=== PATIENT | female | born 2000 | race Caucasian/White ===

== ENCOUNTER 2022-07-20 14:30 | Outpatient (RCR) | payer OTHER, SELFPAY ==
--- NOTE | 2022-07-04 13:00 | HP.PTEVAL ---
Patient's Visit Information PUNEET WARNER is a 22 year old F referred to Physical Therapy by LUCY Hernandez with a diagnosis of Chronic B hip and knee pain. Date of Evaluation: 07/04/22 Physical Therapist: Wilfrido Figueroa DPT - Visit Plan Frequency: 2x /Week Duration: 6 Weeks Plan: Start with B LE/core strengthening in aquatic setting. Work on graded/progressive exercises. Progress home walking program and home exercise program as tolerated. - Subjective Pt. is here today for her initial evaluation with diagnosis of chronic B hip pain, B knee pain. Pt. 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 Pt. reports having increased anxiety, fibromyalgia, and growth hormone deficiency. Pt. reports having increased B hip and knee pain, but intermittently. today is a good day. She reports having increased pain with increased activities. Pt. denies N/T. She reports having ruled out alternate auto immune disorders. Pt. has tried land based PT with mild success. She has recently done DN and had experienced some reduction in symptoms. She has a fairly sedentary life style secondary to pain and work schedule, working on computer doing customer service. Pt. is hopeful to reduce symptoms in order to get back to all recreational and work activities with less hip and knee pain. - Pain R knee Pain Intensity (Out of 10): 0 Pain Intensity Range: 0, 8 L knee Pain Intensity (Out of 10): 0 Pain Intensity Range: 0, 8 R hip Pain Intensity (Out of 10): 0 Pain Intensity Range: 0, 7 L hip Pain Intensity (Out of 10): 0 Pain Intensity Range: 0, 7 Lumbar spine Pain Intensity (Out of 10): 0 Pain Intensity Range: 0, 6 - Objective POSTURE: Pt. had fairly normal posture in stance. Normal hip and knee positioning in stance. No valgus/varus positioning in noted. PALPATION: Pt. had no pain with palpation of BLEs. Pt. did not have any medial or lateral joint pain today. No marked edema or swelling noted. Pt. reports that she does experience increased swelling in her L knee after standing and working for longer hours. NEURO: normal sensation and normal DTR of BLEs. Pt. is able to rise on heels and toes without limitatinos. ROM: PT. has full ROM of B knees and hips. Pt. does have slight tenderness with L knee during passive over pressure. Pt. has slight tightness in B HS. MMT: B ankles 5/5 throughout. R Knee: ext 35#, flexion 31.2#. L knee: ext 33.9#, flexion 32.4#. R hip: flexion 21.3#, abd 28#. L hip: flexion 22.8#, abd 24.7#. GAIT: pt. has fairly normal gait pattern. Slight lateral hip sway. Pt. has normal step length. She reports no pain with testing today. STAIRS: pt. is able to negotiate with reciprocal pattern without use of HR. She does reports increased L knee (anterior) with loading ascending and descending. Reduced with cessation of stairs. - Special Tests R Hip Scour: Negative R Hip Quadrant - Intraarticular Pathology: Negative R Hip CIELO - Intraarticular Pathology: Negative R Hip FADDIR - Labrum: Negative R Hip Ilda - IT Band: Negative L Hip Scour: Negative L Hip Quadrant - Intraarticular Pathology: Negative L Hip CIELO - Intraarticular Pathology: Negative L Hip FADDIR - Labrum: Negative L Hip Trendelenberg - Glut Medius: Negative R Knee Katie - Meniscus: Negative R Knee Disco Test - Meniscus: Negative R Knee Freeman - ACL: Negative R Knee Posterior Drawer - PCL: Negative R Knee Posterior Sag - PCL: Negative R Knee Valgus - MCL: Negative R Knee Varus - LCL: Negative R Knee Patellar Apprehension - PFS: Negative L Knee Katie - Meniscus: Negative L Knee Disco Test - Meniscus: Negative L Knee Freeman - ACL: Negative L Knee Posterior Drawer - PCL: Negative L Knee Posterior Sag - PCL: Negative L Knee Valgus - MCL: Negative L Knee Varus - LCL: Negative - Balance/Special Test Scores Lower Extremity Functional Score: 40 - Goals Goal 1:: LTG: Pt. to be I with progressive graded exercises. Goal Time Frame: 4-6 Weeks Goal 2:: STG: Pt. to initiate and maintain walking program to increase tolerance to overall mobility and functional activities. Goal Time Frame: 2-4 Weeks Goal 3:: LTG: Pt. to be able to ambulate 1500'+ in 6MWT without increase in symptoms. Goal Time Frame: 4-6 Weeks Goal 4:: LTG: Pt. to have increased BLE strength and core strength increased by 10# throughout. Goal Time Frame: 4-6 Weeks Goal 5:: LTG: Pt. to be able to negotiate 1 flight of stairs without increase in knee pain. Goal Time Frame: 4-6 Weeks - Rehabilitation Potential Physical Therapy Diagnosis: Pt. has signs and symptoms consistent with Chronic B hip and knee pain. Pt. has some mild weakness in her BLE and core. She has decent ROM. It seems to be more of a fibromyalgia like pathology rather than a marked mechanical one. I would recommend that she start with graded exercises slowly increasing load in order to progress tolerance to all ADLs and recreational activities. Rehabilitation Potential: Good - Anticipated Interventions Patient/Client Instruction: Educate patient on: Condition, Plan of Care, Risk Factors, Benefits of Fitness Program For the Purpose of:: To facilitate caregiver knowledge, To improve self management, To prevent re-injury, To improve ability to perform tasks related to life management, To improve tolerance to ADL's Therapeutic Exercise to Include: Strength training, Power training, Balance training, Body mechanics, Postural training, Flexibilty training, Gait and locomotor training, In an aquatic setting, Dynamic Lumbar Stabilization For the Purpose of:: To decrease pain, To increase ROM, To improve nutrient delivery to tissue, To increase oxygenation perfusion, To improve muscle performance and motor function, To improve ability to perform ADL's, To improve gait and locomotor functions, To improve health of tissue, To decrease soft tissue restriction, To increase flexibility/ROM Thank you for the opportunity to evaluate your patient. For Medicare and Medicare HMO plans, please review the plan of care and approve it. It will need to be FAXED BACK to us at [phone] for Medicare purposes. For Medicare only, by signing this I certify the plan of care. Please let me know if there are questions or concerns regarding this plan of care. Physician Signature: Date:
== END 2022-07-20 19:00 | disposition home or self-care (01) ==
LOC: PT 14:30
PROVIDERS: PCP Pediatrics; Referring Provider Nurse Practitioner; Visit Provider Nurse Practitioner
DX: M25.561 Pain in right knee (principal); M25.562 Pain in left knee; M25.551 Pain in right hip; M25.552 Pain in left hip
CPT/HCPCS: 97113; 97161

== ENCOUNTER → 2023-06-24 | Outpatient (CLI) | payer OTHER, SELFPAY ==
--- NOTE | 2023-06-24 08:09 | RAD_ITS ---
INDICATION: difficulty breathing -- sustained blunt trauma to her nose in 5th grade EXAMINATION/TECHNIQUE: X-RAY - XR Nasal Bones Min 3 Views COMPARISON: No relevant prior comparison study available FINDINGS: SOFT TISSUES: No soft tissue swelling or gas. No radiopaque foreign body. BONES/TMJs: No fracture or subluxation. No sclerotic or destructive changes observed. RAD/Nasal Bones min 3 Views IMPRESSION: Unremarkable nasal bones as seen on this exam. Electronically Signed: Jose Enrique Michelle MD at 8:38 EST ,
== END | disposition home or self-care (01) ==
PROVIDERS: Referring Provider Surgery; Visit Provider Surgery
DX: R06.89 Other abnormalities of breathing (principal); J98.8 Other specified respiratory disorders; J34.2 Deviated nasal septum; J34.89 Other specified disorders of nose and nasal sinuses; S00.33XS Contusion of nose, sequela; Z87.898 Personal history of other specified conditions
CPT/HCPCS: 70160

== ENCOUNTER → 2023-06-27 | Outpatient (CLI) | payer OTHER, SELFPAY ==
--- NOTE | 2023-06-27 17:45 | CT_ITS ---
STUDY: CT FACIAL BONES WITHOUT CONTRAST REASON FOR EXAM: Female, 23 years old. Difficulty breathing -- sustained blunt trauma to her nose in 5th grade RADIATION DOSAGE (If Supplied By Facility): CTDIvol = ( 33.06 ) mGy, DLP = ( 842.11 ) mGycm TECHNIQUE: The patient was scanned in a multi detector CT scanner. Sagittal and coronal images were reconstructed. Individualized dose optimization techniques were used for this CT. COMPARISON: X-ray June 24, 2023 FINDINGS: Normal soft tissue structures. Normal orbital hamilton and orbital contents. Normal nasal bones and anterior nasal spine. Nasal septum deviates to the left. Normal facial bones. There is no demonstrated fracture. Normal visualized paranasal sinuses. CT/Sinus/Facial Bone IMPRESSION: Nasal septal deviation. Electronically Signed: Michael Beal MD at 18:21 EST ,
--- OUTSIDE RECORDS SUMMARY | 2023-06-27 17:54 | XMS RPT_ITS | CCD ---
Author Name Unknown Address [address] [facility] [address] [place] [address] Organization [facility] Care Team Providers Care Air Marshal Name Role Phone TERRAZAS ANTOINE L Unavailable Unavailable TOD, MARGI M Unavailable Unavailable TOD, MARGI M Unavailable Unavailable TERRAZAS, ANTOINE L Unavailable Unavailable TERRAZAS, ANTOINE L Unavailable Unavailable TOD, MARGI M Unavailable Unavailable TOD, MARGI M Unavailable Unavailable TERRAZAS, ANTOINE L Unavailable Unavailable TERRAZAS, ANTOINE L Unavailable Unavailable YUDI VAZQUEZ Unavailable Unavailable TOD, MARGI M Unavailable Unavailable TOD, MARGI M Unavailable Unavailable Ailin GAN, Sigifredo Foster Primary Care Provider [phone] Ailin GAN, Sigifredo Foster Primary Care Provider [phone] Ailin GAN, Sigifredo oFster Primary Care Provider [phone] DAISY BENJAMIN Referring Unavailable PARISI, SIGIFREDO Foster Primary Care Unavailable PARISI, SIGIFREDO Foster Primary Care Unavailable SIGIFREDO PARISI Attending Unavailable AILIN, SIGIFREDO Foster Primary Care Unavailable PARISISIGIFREDO FINLEY Attending Unavailable PARISI, RASHAD Primary Care Unavailable PATO ESTEVEZ Attending Unavailable OLDER, ERICA Referring Unavailable PARISI, RASHAD Primary Care Unavailable PATO ESTEVEZ Attending Unavailable OLDER, ERICA Referring Unavailable PARISI, RASHAD Primary Care Unavailable PATO ESTEVEZ Attending Unavailable OLDER, ERICA Referring Unavailable PARISI, RASHAD Primary Care Unavailable PATO ESTEVEZ Attending Unavailable OLDER, ERICA Referring Unavailable PARISI, RASHAD Primary Care Unavailable PATO ESTEVEZ Attending Unavailable OLDER, ERICA Referring Unavailable PARISI, RASHAD Primary Care Unavailable PATO ESTEVEZ Attending Unavailable OLDER, ERICA Referring Unavailable PARISI, RASHAD Primary Care Unavailable PATO ESTEVEZ Attending Unavailable OLDER, ERICA Referring Unavailable SIGIFREDO PARISI Primary Care Unavailable SIGIFREDO PARISI Referring Unavailable SIGIFREDO PARISI Primary Care Unavailable Allergies Allergy Classification Reported Allergen(s) Allergy Type Date of Onset Reaction(s) Facility (20 sources) codeine; Translations: [CODEINE] Drug Allergy 07-06-2005 [facility] Repository Medications Current Medications Medication Drug Class(es) Dates Sig (Normalized) Sig (Original) etonogestrel 68 mg drug implant (20 sources) Progestin Start: 05-16-2020 End: 05-16-2023 etonogestrel (NEXPLANON) subdermal implant 68 mg Indications: Insertion of implantable subdermal contraceptive 1 Each by SUBDERMAL route as directed. 1 Each 0 05/16/2020 05/16/2023 Active Completed/Discontinued Medications Medication Drug Class(es) Dates Sig (Normalized) Sig (Original) benzonatate 100 mg oral capsule (1 source) Non-narcotic Antitussive Start: 04-26-2023 take 2 capsules by mouth three times daily as needed benzonatate (TESSALON PERLE) 100 mg capsule Indications: URI, acute Take 2 capsules by mouth three times a day as needed. 30 capsule 0 04/26/2023 Active Problems Active Problems Problem Classification Problem Date Documented Da te Episodic/Chronic Anxiety disorders (20 sources) Generalized anxiety disorder; Translations: [Generalized anxiety disorder] Onset: 09-06-2021 09-06-2021 Chronic Mood disorders (20 sources) Recurrent major depressive episodes, moderate ; Translations: [Major depressive disorder, recurrent, moderate] Onset: 09-06-2021 09-06-2021 Chronic Nutritional deficiencies (17 sources) Vitamin D deficiency; Translations: [Vitamin D deficiency, unspecified] Onset: 09-11-2021 Chronic Unclassified (1 source) APPOINTMENT CANCELLED Past or Other Problems Problem Classification Problem Date Documented Date Episodic/Chronic Immunizations and screening for infectious disease (2 sources) Encounter for screening for human immunodeficiency virus [HIV]; Translations: [Encounter for screening for other viral diseases] Onset: 01-15-2023 Episodic Other connective tissue disease (16 sources) Fibromyalgia; Translations: [Fibromyalgia] Onset: 04-30-2022 Episodic Other connective tissue disease (1 source) Fibromyalgia; Translations: [Fibromyalgia] Onset: 04-30-2022 Episodic Other non-traumatic joint disorders (20 sources) Multiple joint pain; Translations: [Pain in unspecified joint] Onset: 09-06-2021 09-06-2021 Episodic Results Test Name Value Interpretation Reference Range Facil ity Vital Signs Date Time Vital Sign Value Performing Clinician Xenia clark 09-06-2021 16:19-0400 Body height 153 cm Erica Older DISTRICT SALES REPRESENTATIVE.BIODIESEL PROCESS CONTROL TECHNICIAN Work Phone: [facility] 09-06-2021 16:19-0400 Body weight 60.78 kg Erica Older DISTRICT SALES REPRESENTATIVE.BIODIESEL PROCESS CONTROL TECHNICIAN Work Phone: [facility] 09-06-2021 16:19-0400 Diastolic blood pressure 82 mm[Hg] Erica Older DISTRICT SALES REPRESENTATIVE.BIODIESEL PROCESS CONTROL TECHNICIAN Work Phone: [facility] 09-06-2021 16:19-0400 Heart rate 78 /min Erica Older DISTRICT SALES REPRESENTATIVE.BIODIESEL PROCESS CONTROL TECHNICIAN Work Phone: [facility] 09-06-2021 16:19-0400 Respiratory rate 16 /min Erica Older DISTRICT SALES REPRESENTATIVE.BIODIESEL PROCESS CONTROL TECHNICIAN Work Phone: [facility] 09-06-2021 16:19-0400 SaO2% (BldA) [Mass fraction] 97 % Erica Older DISTRICT SALES REPRESENTATIVE.BIODIESEL PROCESS CONTROL TECHNICIAN Work Phone: [facility] 09-06-2021 16:19-0400 Systolic blood pressure 120 mm[Hg] Erica Older DISTRICT SALES REPRESENTATIVE.BIODIESEL PROCESS CONTROL TECHNICIAN Work Phone: [facility] Encounters Encounter Date Encounter Type Care Provider Facility Start: 04-30-2023 ambulatory Erica Older DISTRICT SALES REPRESENTATIVE .BIODIESEL PROCESS CONTROL TECHNICIAN Work Phone: [facility] Plan of Treatment Date Care Activity Detail Author Start: 05-02-2023 PAP TESTING PAP TESTING [facility] Start: 02-15-2023 Covid-19 Vaccine ( season) Covid-19 Vaccine ( season) [facility] Start: 02-15-2023 Influenza vaccination [facility] Start: 02-15-2022 Influenza vaccination INFLUENZA (#1) [facility] Start: 01-31-2022 Urine microalbumin profile [facility] Start: 12-12-2021 End: 02-11-2022 VITAMIN D 25 HYDROXY VITAMIN D 25 HYDROXY Lab Routine Vitamin D deficiency Expected: 12/12/2021 (Approximate), Expires: 02/11/2022 [facility] Work Phone: Immunizations Immunization Date Immunization Notes Care Provider Misael davidson 04-14-2021 COVID-19 vaccine, ag e 12+ yr (PFIZER-BIONTECH - PURPLE TOP) Erica Older DISTRICT SALES REPRESENTATIVE.BIODIESEL PROCESS CONTROL TECHNICIAN Work Phone: [facility] 04-14-2021 influenza, injectabl e, quadrivalent, contains preservative Erica Older DISTRICT SALES REPRESENTATIVE.BIODIESEL PROCESS CONTROL TECHNICIAN Work Phone: [facility] 04-14-2021 influenza virus vacc ine, unspecified formulation Erica Older DISTRICT SALES REPRESENTATIVE.BIODIESEL PROCESS CONTROL TECHNICIAN Work Phone: [facility] 06-13-2020 COVID-19 vaccine, ag e 12+ yr (PFIZER-BIONTECH - PURPLE TOP) Erica Older DISTRICT SALES REPRESENTATIVE.BIODIESEL PROCESS CONTROL TECHNICIAN Work Phone: [facility] 01-09-2018 Human Papillomavirus 9-valent vaccine Erica Older DISTRICT SALES REPRESENTATIVE.BIODIESEL PROCESS CONTROL TECHNICIAN Work Phone: [facility] Work Phone: 10-11-2017 Human Papillomavirus 9-valent vaccine Erica Older DISTRICT SALES REPRESENTATIVE.BIODIESEL PROCESS CONTROL TECHNICIAN Work Phone: [facility] Work Phone: 05-17-2017 Human Papillomavirus 9-valent vaccine Erica Older DISTRICT SALES REPRESENTATIVE.BIODIESEL PROCESS CONTROL TECHNICIAN Work Phone: [facility] Work Phone: 01-24-2017 meningococcal polysaccharide (groups A, C, Y and W-135) diphtheria toxoid conjugate vaccine (MCV4P) Erica Older DISTRICT SALES REPRESENTATIVE.BIODIESEL PROCESS CONTROL TECHNICIAN Work Phone: [facility] 05-18-2016 influenza, seasonal, injectable Erica Older DISTRICT SALES REPRESENTATIVE.BIODIESEL PROCESS CONTROL TECHNICIAN Work Phone: [facility] 04-21-2013 influenza virus vacc ine, live, attenuated, for intranasal use Erica Older DISTRICT SALES REPRESENTATIVE.BIODIESEL PROCESS CONTROL TECHNICIAN Work Phone: [facility] 11-05-2013 varicella virus vaccine Erica Older DISTRICT SALES REPRESENTATIVE.[facility] Work Phone: [facility] 05-01-2012 influenza virus vacc ine, unspecified formulation Erica Older DISTRICT SALES REPRESENTATIVE.[facility] Work Phone: [facility] 02-01-2012 Meningococcal, MCV4, unspecified conjugate formulation(groups A, C, Y and W-135) Erica Older DISTRICT SALES REPRESENTATIVE.[facility] Work Phone: [facility] Work Phone: 02-01-2012 tetanus toxoid, redu gabriela diphtheria toxoid, and acellular pertussis vaccine, adsorbed Erica Older DISTRICT SALES REPRESENTATIVE.[facility] Work Phone: [facility] Work Phone: 04-28-2011 influenza virus vacc ine, live, attenuated, for intranasal use Erica Older DISTRICT SALES REPRESENTATIVE.[facility] Work Phone: [facility] 2010 influenza virus vacc ine, live, attenuated, for intranasal use Erica Older DISTRICT SALES REPRESENTATIVE.BIODIESEL PROCESS CONTROL TECHNICIAN Work Phone: [facility] 04-20-2009 novel Influenza-H1N1 -09, live virus for nasal administration Sigifredo Parisi MD Work Phone: [facility] 05-06-2008 influenza virus vacc ine, unspecified formulation Erica Older DISTRICT SALES REPRESENTATIVE.BIODIESEL PROCESS CONTROL TECHNICIAN Work Phone: [facility] Work Phone: 05-07-2006 influenza virus vacc ine, unspecified formulation Erica Older DISTRICT SALES REPRESENTATIVE.[facility] Work Phone: [facility] Work Phone: 03-14-2004 diphtheria, tetanus toxoids and acellular pertussis vaccine Erica Older DISTRICT SALES REPRESENTATIVE.BIODIESEL PROCESS CONTROL TECHNICIAN Work Phone: [facility] Work Phone: 03-14-2004 measles, mumps and rubella virus vaccine Erica Older DISTRICT SALES REPRESENTATIVE.BIODIESEL PROCESS CONTROL TECHNICIAN Work Phone: [facility] Work Phone: 03-14-2004 poliovirus vaccine, inactivated Erica Older DISTRICT SALES REPRESENTATIVE.[facility] Work Phone: [facility] Work Phone: 05-10-2003 influenza virus vacc ine, unspecified formulation Erica Older DISTRICT SALES REPRESENTATIVE.[facility] Work Phone: [facility] Work Phone: 09-10-2000 diphtheria, tetanus toxoids and acellular pertussis vaccine Erica Older DISTRICT SALES REPRESENTATIVE.BIODIESEL PROCESS CONTROL TECHNICIAN Work Phone: [facility] Work Phone: 09-10-2000 haemophilus influenz ae type b vaccine, HbOC conjugate Erica Older DISTRICT SALES REPRESENTATIVE.BIODIESEL PROCESS CONTROL TECHNICIAN Work Phone: [facility] Work Phone: 09-10-2000 hepatitis B vaccine, pediatric or pediatric/adolescent dosage Erica Older DISTRICT SALES REPRESENTATIVE.[facility] Work Phone: [facility] Work Phone: 09-10-2000 pneumococcal conjuga te vaccine, 7 valent Erica Older DISTRICT SALES REPRESENTATIVE.[facility] Work Phone: [facility] Work Phone: 05-23-2000 measles, mumps and rubella virus vaccine Erica Older DISTRICT SALES REPRESENTATIVE.[facility] Work Phone: [facility] Work Phone: 05-23-2000 pneumococcal conjuga te vaccine, 7 valent Erica Older DISTRICT SALES REPRESENTATIVE.BIODIESEL PROCESS CONTROL TECHNICIAN Work Phone: [facility] Work Phone: 05-23-2000 poliovirus vaccine, inactivated Erica Older DISTRICT SALES REPRESENTATIVE.BIODIESEL PROCESS CONTROL TECHNICIAN Work Phone: [facility] Work Phone: 05-17-2000 varicella virus vaccine Erica Older DISTRICT SALES REPRESENTATIVE.BIODIESEL PROCESS CONTROL TECHNICIAN Work Phone: [facility] Work Phone: 02-22-2000 pneumococcal conjuga te vaccine, 7 valent Erica Older DISTRICT SALES REPRESENTATIVE.BIODIESEL PROCESS CONTROL TECHNICIAN Work Phone: [facility] Work Phone: 1999 diphtheria, tetanus toxoids and acellular pertussis vaccine Erica Older DISTRICT SALES REPRESENTATIVE.BIODIESEL PROCESS CONTROL TECHNICIAN Work Phone: [facility] Work Phone: 1999 diphtheria, tetanus toxoids and acellular pertussis vaccine Erica Older DISTRICT SALES REPRESENTATIVE.[facility] Work Phone: [facility] Work Phone: 1999 haemophilus influenz ae type b vaccine, HbOC conjugate Erica Older DISTRICT SALES REPRESENTATIVE.[facility] Work Phone: [facility] Work Phone: 1999 hepatitis B vaccine, pediatric or pediatric/adolescent dosage Erica Older DISTRICT SALES REPRESENTATIVE.[facility] Work Phone: [facility] Work Phone: 1999 poliovirus vaccine, inactivated Erica Older DISTRICT SALES REPRESENTATIVE.[facility] Work Phone: [facility] Work Phone: 1999 diphtheria, tetanus toxoids and acellular pertussis vaccine Erica Older DISTRICT SALES REPRESENTATIVE.[facility] Work Phone: [facility] Work Phone: 1999 haemophilus influenz ae type b vaccine, HbOC conjugate Erica Older DISTRICT SALES REPRESENTATIVE.[facility] Work Phone: [facility] Work Phone: 1999 hepatitis B vaccine, pediatric or pediatric/adolescent dosage Erica Older DISTRICT SALES REPRESENTATIVE.[facility] Work Phone: [facility] Work Phone: 1999 poliovirus vaccine, inactivated Erica Older DISTRICT SALES REPRESENTATIVE.[facility] Work Phone: [facility] Work Phone: Payers Date Payer Category Payer Private Health Insurance [employer] A ETNA CHOICE POS II [id number] 2019-Present [phone] [address] [place] [address] POS [id number] 2019 Private Health Insurance [id number] 2019 Private Health Insurance [id number] Unknown [id number] Social History Date Type Detail Facility Start: 09-06-2021 End: 04-24-2022 Tobacco smoking status NHIS Ex-smoker [facility] End: 06-17-2020 History of tobacco use Current smoker [facility] End: 06-17-2020 History of tobacco use Cigarette Smoker [facility] Start: 09-06-2021 End: 10-26-2022 Cigarettes smoked current (pack per day) - Reported 0.5 [facility] Start: 09-06-2021 End: 04-24-2022 Tobacco use and exposure Smokeless tobacco non-user [facility] Start: 09-06-2021 End: 04-26-2023 Alcohol intake Current drinker of alcohol (finding) [facility] Start: 09-06-2021 History SDOH Alcohol Comment occasional [facility] Start: 1999 Sex Assigned At Not on file [facility] Start: 08-22-2021 End: 09-01-2021 Exposure to SARS-CoV-2 (event) Not sure [facility] Work Phone: Start: 08-22-2022 History SDOH Alcohol Frequency 2 [facility] Start: 08-22-2022 History SDOH Alcohol Std Drinks 1 [facility] Start: 08-22-2022 History SDOH Social Connections Phone 5 [facility] Start: 08-22-2022 History SDOH Social Connections Get Together 3 [facility] Start: 08-22-2022 History SDOH Social Connections Quaker 98 [facility] Start: 08-22-2022 History SDOH Social Connections Living 8 [facility] Start: 08-22-2022 History SDOH Stress 4 [facility] Start: 08-22-2022 End: 10-26-2022 Social connection and isolation panel [facility] How often do you att end mandaeism or yazdanism services? Patient refused [facility] Do you belong to any clubs or organizations such as mandaeism groups, unions, fraternal or athletic groups, or school groups? No [facility] Are you now , , , , never or living with a partner? Living with partner [facility] How often to you hav e a drink containing alcohol? Monthly or less [facility] How many standard dr inks containing alcohol do you have on a typical day? 1 or 2 [facility] How often do you hav e 6 or more drinks on 1 occasion? Never [facility] Do you feel stress - tense, restless, nervous, or anxious, or unable to sleep at night because your mind is troubled all the time - these days [OSQ] Rather much [facility] (I/We) worried wheth er (my/our) food would run out before (I/we) got money to buy more. Never true [facility] Clinical Notes 12-04-2016 to 04-26-2023 Sigifredo Parisi MD - 08/24/2022 10:51 AM Jamia Estevez, PT - 06/29/2022 9:42 AM ESTTelephone Encounter - Radha Thrasher RN - 06/28/2022 12:14 PM Jamia Estevez, PT - 06/05/2022 1:56 PM EST Note Date & Type Note Facility 04-26-2023 Note HNO ID: [id number] Author: Daisy Benjamin APRN.BIODIESEL PROCESS CONTROL TECHNICIAN Service: ? Author Type: Nurse Practitioner Type: Progress Notes Filed: 04/26/2023 12:22 PM Note Text: Subjective HPI HPI Valente Adame is a 22 year old female who presents today for CC of cough, congestion, ear pain, sinus pressuer. This started 4 days ago. Has tried otc medication for relief. Symptoms are worsened by nothing. Risk factors sick exposures recently. Denies possibility of being . Nonsmoker. 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 One capsule per week. DULoxetine (CYMBALTA) 60 mg capsule Take 1 capsule by mouth once daily. meloxicam (MOBIC) 15 mg tablet Take 1 tablet by mouth once daily as needed. With food. traZODone (DESYREL) 100 mg tablet Take 100 mg by mouth at bedtime as needed. busPIRone (BUSPAR) 15 mg tablet Take 30 mg by mouth twice daily. etonogestrel (NEXPLANON) subdermal implant 68 mg 1 Each by SUBDERMAL route as directed. predniSONE (DELTASONE) 20 mg tablet Take 2 tablets by mouth once daily for 5 days. benzonatate (TESSALON PERLE) 100 mg capsule Take 2 capsules by mouth three times a day as needed. FAMILY HISTORY Problem Relation Age of Onset Kidney Disease Mother nephritis Headache Mother migraine Hypertension Maternal Grandmother Breast Cancer Maternal Grandmother carries breast gene Diabetes Maternal Grandfather type 2 Lipids Maternal Grandfather Hypertension Maternal Grandfather Blood Disease Maternal Grandfather refractory anemia Diabetes Paternal Grandfather type 2 Rheumatologic disease Other RA Social History Tobacco Use Smoking status: Former Packs/day: 0.50 Years: 2.00 Additional pack years: 0.00 Total pack years: 1.00 Types: Cigarettes Quit date: 2020 Years since quittin.8 Smokeless tobacco: Never Vaping Use Vaping Use: Former Substance Use Topics Alcohol use: Yes Comment: occasional Drug use: No Review of Systems Constitutional: Negative for fever. HENT: Positive for congestion, ear pain and sore throat. Negative for ear discharge and nosebleeds. Respiratory: Positive for cough. Negative for shortness of breath and wheezing. Gastrointestinal: Negative for diarrhea and vomiting. Musculoskeletal: Negative for neck pain. Skin: Negative for itching and rash. Objective Blood pressure 117/76, pulse 82, temperature 36.6 ?C (97.8 ?F), resp. rate 18, weight 55.7 kg (122 lb 12.8 oz), SpO2 99 %.' Physical Exam Constitutional: General: She is not in acute distress. Appearance: She is not toxic-appearing or diaphoretic. HENT: Head: Normocephalic and atraumatic. Right Ear: Hearing, tympanic membrane, ear canal and external ear normal. Left Ear: Hearing, tympanic membrane, ear canal and external ear normal. Nose: Nose normal. Mouth/Throat: Pharynx: Uvula midline. No pharyngeal swelling, oropharyngeal exudate, posterior oropharyngeal erythema or uvula swelling. Eyes: General: Lids are normal. No scleral icterus. Right eye: No discharge. Left eye: No discharge. Conjunctiva/sclera: Conjunctivae normal. Pupils: Pupils are equal, round, and reactive to light. Neck: Trachea: Trachea normal. Cardiovascular: Rate and Rhythm: Normal rate and regular rhythm. Heart sounds: Normal heart sounds. Pulmonary: Effort: Pulmonary effort is normal. Breath sounds: Normal breath sounds. Musculoskeletal: Cervical back: Normal range of motion and neck supple. Lymphadenopathy: Cervical: No cervical adenopathy. Right cervical: No superficial cervical adenopathy. Left cervical: No superficial cervical adenopathy. Skin: Findings: No rash. Neurological: Mental Status: She is alert and oriented to person, place, and time. ASSESSMENT/PLAN: 1. URI, acute - ICD9: 465.9, ICD10: J06.9 (primary diagnosis) - Discussed viral etiology and rationale for treatment. - Symptomatic treatment with prn analgesia - Supportive care with fluids and rest - Follow up in 3-5 days if symptoms persist or sooner if worsening of symptoms - PREDNISONE 2 (more content not included)... [facility] 04-26-2023 Note HNO ID: [id number] Author: Cheri Chaudhari RT(R) Service: Radiology Author Type: Technologist Type: Progress Notes Filed: 04/26/2023 11:52 AM Note Text: Radiology Service Progress Note PATIENT NAME: Valente Adame DATE OF SERVICE: April 26, 2023 TIME: 11:44 AM PATIENT IDENTITY VERIFICATION COMPLETED USING TWO (2) IDENTIFIERS: Name and Date of confirmed by patient verbally. FALL SCREENING: Has the patient had 2 falls in the last year or 1 fall with injury or currently using an Ambulatory Assistive Device (Walker, Cane, Wheelchair, Crutches, etc.)? No PATIENT GENDER DATA: Female. status: : No status: NO. PATIENT RELEVANT IMPLANT DATA REVIEWED: Not Applicable RADIOLOGY DEPARTMENT: General X-ray: Exam(s) Completed: Chest X-Ray PERIPHERAL IV DATA: Not applicable SIGNED BY: RT Woo(R) April 26, 2023 11:44 AM [facility] 10-26-2022 Note HNO ID: [id number] Author: Sigifredo Parisi MD Service: ? Author Type: Physician Type: Progress Notes Filed: 10/26/2022 10:49 AM Note Text: This note was created using [employer]. Subjective Valnete Adame is a 22 year old female I am meeting for the first time. She had been feeling episodes of fatigue and daytime somnolence for the past year. Symptoms average about twice a week. She's had to call off a few times, or had to kidney puller while driving to rest a few times. She had no accidents, and she generally was not able to sleep or call off work to find relief. She tried caffeine, then energy drinks with decreasing efficacy and she felt dependent now on energy drinks. She had been on Vyvanse in the past but her mental health provider did not recommend stimulants. She was nearing her annual check up with Dr. Misbah Cevallos this summer. Sleep was generally non refreshing, and described by her boyfriend to be restless. She had difficulty waking up even with her alarm clock. She had inconsistent exercise. 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 We reviewed her labs and health maintenance. Review of Systems Constitutional: Negative for activity change, appetite change, fever and unexpected weight change. HENT: Negative. Respiratory: Negative for shortness of breath. Cardiovascular: Negative. Gastrointestinal: Negative for diarrhea, nausea and vomiting. Musculoskeletal: Negative. Neurological: Negative for dizziness and headaches. Psychiatric/Behavioral: See HPI ACTIVE PROBLEM LIST Generalized Anxiety Disorder Moderate Episode of Recurrent Major Depressive Disorder (Hcc) Chronic Pain of Multiple Joints Vitamin D Deficiency Fibromyalgia Social History Tobacco Use Smoking status: Former Packs/day: 0.50 Years: 2.00 Pack years: 1.00 Types: Cigarettes Quit date: 2020 Years since quittin.3 Smokeless tobacco: Never Vaping Use Vaping Use: Former Substance Use Topics Alcohol use: Yes Comment: occasional Drug use: No Current Outpatient Medications Medication Sig DULoxetine (CYMBALTA) 60 mg capsule Take 1 capsule by mouth once daily. meloxicam (MOBIC) 15 mg tablet Take 1 tablet by mouth once daily as needed. With food. traZODone (DESYREL) 100 mg tablet Take 100 mg by mouth at bedtime as needed. busPIRone (BUSPAR) 15 mg tablet Take 30 mg by mouth twice daily. etonogestrel (NEXPLANON) subdermal implant 68 mg 1 Each by SUBDERMAL route as directed. ergocalciferol 50,000 unit capsule (VITAMIN D2, DRISDOL) Take 1 capsule by mouth one time a week. (Patient not taking: Reported on 10/26/2022) No current facility-administered medications for this visit. Objective BP 108/66 Pulse 79 Resp 16 Wt 55.3 kg (122 lb) LMP (LMP Unknown) SpO2 95% BMI 23.63 kg/m? Physical Exam Constitutional: Appearance: She is not ill-appearing. HENT: Head: Normocephalic. Eyes: Extraocular Movements: Extraocular movements intact. Conjunctiva/sclera: Conjunctivae normal. Cardiovascular: Rate and Rhythm: Normal rate and regular rhythm. Heart sounds: No murmur heard. No gallop. Pulmonary: Breath sounds: Normal breath sounds. Musculoskeletal: Right lower leg: No edema. Left lower leg: No edema. Lymphadenopathy: Cervical: No cervical adenopathy. Neurological: General: No focal deficit present. Mental Status: She is alert. Psychiatric: Mood and Affect: Mood normal. Behavior: Behavior normal. Thought Content: Thought content normal. Component Latest Ref Rng AND Units 09/06/2021 WBC 3.70 - 11.00 k/uL 5.75 RBC 3.90 - 5.20 m/uL 4.71 Hemoglobin 11.5 - 15.5 g/dL 14.1 Hematocrit 36.0 - 46.0 % 42.8 MCV 80.0 - 100.0 fL 90.9 MCH 26.0 - 34.0 pg 29.9 MCHC 30.5 - 36.0 g/dL 32.9 RDW-CV 11.5 - 15.0 % 12.6 Platelet Count 150 - 400 k/uL 235 MPV 9.0 - 12.7 fL 10.7 Neut% % 61.5 Abs Neut (ANC) 1.45 - 7.50 k/uL 3.54 Lymph% % 26.3 Abs Lymph 1.00 - 4.00 k/uL 1.51 Beckham% % 11.5 Abs Beckham <0.87 k/uL 0.66 Eosin% % 0.3 Abs Eosin <0.46 k/uL <0.03 Baso% % 0.2 Abs Baso <0.11 k/uL <0.03 Immature Gran % % 0.2 IMMATURE GRANS (ABS) <0.10 k/uL <0.03 NRBC /100 WBC 0.0 Absolute nRBC <0.01 k/uL <0.01 DTYPE Auto Protein, Total 6.3 - 8.0 g/dL 6.8 Albumin 3.9 - 4.9 g/dL 4.7 Calcium 8.5 - 10.2 mg/dL 9.4 Bilirubin, Total 0.2 - 1.3 mg/dL 0.3 Alkaline Phosphatase 34 - 123 U/L 60 AST 13 - 35 U/L 26 ALT 7 - 38 U/L 17 Glucose 74 - 99 mg/dL 80 BUN 7 - 21 mg/dL 6 (L) Creatinine 0.58 - 0.96 mg/dL 0.67 Sodium 136 - 144 mmol/L 142 Potassium 3.7 - 5.1 mmol/L 4.4 Chloride 97 - 105 mmol/L 105 CO2 22 - 30 mmol/L 26 Anion Gap 9 - 18 mmol/L 11 eGFR >=60 mL/min/1.73mA? 127 TSH 0.270 - 4.200 mIU/L 0.586 Rheumatoid Factor <16 IU/mL <10 [place] Negative Negative WSR 0 - 20 mm/hr 2 CRP <0.9 mg/dL <0.3 Vitamin D 25 Hydroxy 31.0 - 80.0 ng/mL 27.6 (L) Assessment and Plan 1. Fati (more content not included)... [facility] 08-24-2022 Note HNO ID: [id number] Author: Sigifredo Parisi MD Service: ? Author Type: Physician Type: Progress Notes Filed: 08/24/2022 12:52 PM Note Text: Video could not be established. I tried calling phone. No answer, no ring. [facility] 08-24-2022 History of Presen t illness Narrative Video could not be established. I tried calling phone. No answer, no ring. documented in this encounter [facility] 06-29-2022 Note HNO ID: [id number] Author: Pato Estevez PT Service: ? Author Type: Physical Therapist Type: Progress Notes Filed: 06/29/2022 10:19 AM Note Text: Episode Visit Count: 7 Therapist That Will Accept/Oversee The Plan Of Care: Pato Estevez Start of Care Date: 04/30/22 Onset Date: 04/30/18 [facility] SPORTS THERAPY PHYSICAL THERAPY TREATMENT NOTE ASSESSMENT: Valente Adame tolerated the session with decreased symptoms, expected muscle soreness, and no issues. She demonstrated improvements in neck pain, back pain, and tolerance for work activities. The patient will continue to benefit from ongoing skilled physical therapy to progress toward set goals. PLAN FOR NEXT VISIT: Continue manual as needed for symptoms management SUBJECTIVE: Patient Reason for Visit: Pt feeling better today, but a couple touchy spots. She is scheduled for aquatic therapy at [facility]. Pain: Pain Pain Level: 5 Pain Location: Thoracic Spine - Left;Neck Description: Aching;Sore Frequency: Continuous OBJECTIVE MEASURES WITH LEVEL OF FUNCTION: Spine Observations R Cervical Spine Palpation Tenderness: Upper trapezius L Cervical Spine Palpation Tenderness: Upper trapezius L Thoracic Spine Palpation Tenderness: Paraspinals TREATMENT: Manual Therapy: 1: STM and CFM to B upper trap and thoracic paraspinals with push to tolerance Dry Needling: (1) 40 mm needle to L T8 paraspinals with pistoning; (1) 50 mm needle to B upper traps with pistoning and fanning Skilled Intervention: Manual skills to improve joint mobility, ROM, and decrease pain. Utilized anatomy knowledge of the therapist, and assessment of patient's response to intervention. Billing Manual TherapyTreatment Minutes: 39 Total Treatment Time Minutes (timed/untimed): 39 Pato Estevez PT [facility] 06-29-2022 History of Presen t illness Narrative Episode Visit Count: 7 Therapist That Will Accept/Oversee The Plan Of Care: Pato Estevez Start of Care Date: 04/30/22 Onset Date: 04/30/18 REHABILITATION AND SPORTS THERAPY PHYSICAL THERAPY TREATMENT NOTE ASSESSMENT: Valente Adame tolerated the session with decreased symptoms, expected muscle soreness, and no issues. She demonstrated improvements in neck pain, back pain, and tolerance for work activities. The patient will continue to benefit from ongoing skilled physical therapy to progress toward set goals. PLAN FOR NEXT VISIT: Continue manual as needed for symptoms management SUBJECTIVE: Patient Reason for Visit: Pt feeling better today, but a couple touchy spots. She is scheduled for aquatic therapy at [facility]. Pain: Pain Pain Level: 5 Pain Location: Thoracic Spine - Left;Neck Description: Aching;Sore Frequency: Continuous OBJECTIVE MEASURES WITH LEVEL OF FUNCTION: Spine Observations R Cervical Spine Palpation Tenderness: Upper trapezius L Cervical Spine Palpation Tenderness: Upper trapezius L Thoracic Spine Palpation Tenderness: Paraspinals TREATMENT: Manual Therapy: 1: STM and CFM to B upper trap and thoracic paraspinals with push to tolerance Dry Needling: (1) 40 mm needle to L T8 paraspinals with pistoning; (1) 50 mm needle to B upper traps with pistoning and fanning Skilled Intervention: Manual skills to improve joint mobility, ROM, and decrease pain. Utilized anatomy knowledge of the therapist, and assessment of patient's response to intervention. Billing Manual TherapyTreatment Minutes: 39 Total Treatment Time Minutes (timed/untimed): 39 Pato Estevez PT documented in this encounter [facility] 06-28-2022 Miscellaneous Notes Patient calls to request Physical Therapy/Aquatic Therapy order from 06/04/2022 be faxed to [facility]. Faxed to [phone] per request. Radha Thrasher RN documented in this encounter [facility] 06-22-2022 Note HNO ID: [id number] Author: Pato Estevez PT Service: ? Author Type: Physical Therapist Type: Progress Notes Filed: 06/22/2022 9:57 PM Note Text: Episode Visit Count: 6 Therapist That Will Accept/Oversee The Plan Of Care: Pato Estevez Start of Care Date: 04/30/22 Onset Date: 04/30/18 REHABILITATION AND SPORTS THERAPY PHYSICAL THERAPY PROGRESS REPORT PLAN OF CARE UPDATE: Assessment: Valente Adame demonstrates moderate improvement in sitting, physical activities, working, and sleeping. She hasprogressed toward goals. Patient continues to present with impairments in ADL's, overall function, symptom management, and tissue tenderness that interfere with sitting;heavy exertion;lifting;physical activities;working . Current prognosis is Fair due to: clinical presentation . She will benefit from continued skilled therapy services to meet the updated goals for this plan of care as noted below. Goals updated on 06/22/2022. Goals for Episode of Care: created on 04/30/22 through 06/30/22 [place] in home exercise program. Met Patient will decrease pain rating by 2 points to meet minimal clinical important difference for numeric pain rating scale. Partially met Patient will increase active ROM of neck to WNL to allow pt to to improve postural alignment and to improve performance of ADLs. Partially met Patient will demonstrate increase in BLE strength to 5/5 during manual muscle testing in order to improve function for home management tasks, leisure / recreation skills, moderate to heavy functional tasks, work tasks, and prior functional tasks. Not met Perform work tasks, stairs, and heavy exertion with decreased report of symptoms/pain in 6-8 weeks. Not met Perform ADLs without pain. Not met Improve postural awareness. Progressing towards Planned Interventions, Frequency, and Duration: 1x/week, 4 weeks Total Number of Visits Planned: 4 Patient to be seen for Therapeutic exercise (82005);Neuromuscular re-education (69195);Therapeutic activities (45215);Self-halfway management (12035);Manual therapy (07491);Patient/Family/Caregiver Education;Body Mechanics Training;Aquatic PT ([id number]) PLAN FOR NEXT VISIT: Needling as needed, manual to ease symptoms. Progress exercises if symptoms allow SUBJECTIVE: Patient Reason for Visit: Pt notes some left sided thoracic pain that has been there for a week. She has been very conscious of her posture when working on the computer, and feels this may have contributed to the pain.. Functional Limitations: sitting;heavy exertion;lifting;physical activities;working Pain: Pain Pain Level: 7 Pain Location: Thoracic Spine - Left Description: Aching;Shooting;Burning Frequency: Continuous PROMIS Scales T-scores: mean of general population = 50. 5 points is clinically meaningfully difference Percentiles provide an indication of how the patient's score ranks in relation to the general population. Higher percentile rankings indicate better function/quality of life. 50th percentile is the average of the general population and indicates half of respondents had a worse score. T-scores: mean of general population = 50. 5 points is clinically meaningfully difference Percentiles provide an indication of how the patient's score ranks in relation to the general population. Higher percentile rankings indicate better function/quality of life. 50th percentile is the average of the general population and indicates half of respondents had a worse score. OBJECTIVE MEASURES WITH LEVEL OF FUNCTION: Spine Observations L Cervical Spine Palpation Tenderness: Upper trapezius L Thoracic Spine Palpation Tenderness: Paraspinals Cervical Spine ROM Cervical Flexion AROM: Normal Cervical Extension AROM: Normal Cervical Side-Bend Right AROM: Normal Cervical Side-Bend Left AROM: Normal Cervical Rotation Right AROM: Normal Cervical Rotation Left AROM: Normal TREATMENT: Manual Therapy: 1: STM and CFM to L upper trap and thoracic paraspinals with push to tolerance Dry Needling: (1) 40 mm needle to L T8 paraspinals with pistoning Skilled Intervention: Manual skills to improve joint mobility, ROM, and decrease pain. Utilized anatomy knowledge of the therapist, and assessment of patient's response to intervention. Billing Manual TherapyTreatment Minutes: 24 Total Treatment Time Minutes (timed/untimed): 24 Pato Estevez PT [facility] 06-05-2022 Note HNO ID: [id number] Author: Pato Estevez PT Service: ? Author Type: Physical Therapist Type: Progress Notes Filed: 06/05/2022 1:58 PM Note Text: Episode Visit Count: 5 Therapist That Will Accept/Oversee The Plan Of Care: Pato Estevez Start of Care Date: 04/30/22 Onset Date: 04/30/18 REHABILITATION AND SPORTS THERAPY PHYSICAL THERAPY TREATMENT NOTE ASSESSMENT: Valente Adame tolerated the session with expected muscle soreness and no issues. She demonstrated difficulty with neck tightness. The patient will continue to benefit from ongoing skilled physical therapy to progress toward set goals. PLAN FOR NEXT VISIT: Continue with manual techniques for neck SUBJECTIVE: Patient Reason for Visit: Pt's right side of her neck doing better. Notes L side seems tighter, but it was better after last session with the needling Pain: Pain Pain Level: 4 Pain Location: Neck - Left Description: Tightness;Sore Frequency: Continuous OBJECTIVE MEASURES WITH LEVEL OF FUNCTION: Multiple trigger points in B upper traps TREATMENT: Manual Therapy: 1: STM to R upper trap and B cervical paraspinals 2: Manual cervical traction 3: L upper trap stripping x5 min Dry Needling: (1) 50 mm needle to L upper trap with pistoning and fanning Skilled Intervention: Manual skills to improve joint mobility, ROM, and decrease pain. Utilized anatomy knowledge of the therapist, and assessment of patient's response to intervention. Billing Manual TherapyTreatment Minutes: 30 Total Treatment Time Minutes (timed/untimed): 30 Pato Estevez PT [facility] 06-05-2022 History of Presen t illness Narrative Episode Visit Count: 5 Therapist That Will Accept/Oversee The Plan Of Care: Pato Estevez Start of Care Date: 04/30/22 Onset Date: 04/30/18 REHABILITATION AND SPORTS THERAPY PHYSICAL THERAPY TREATMENT NOTE ASSESSMENT: Valente Adame tolerated the session with expected muscle soreness and no issues. She demonstrated difficulty with neck tightness. The patient will continue to benefit from ongoing skilled physical therapy to progress toward set goals. PLAN FOR NEXT VISIT: Continue with manual techniques for neck SUBJECTIVE: Patient Reason for Visit: Pt's right side of her neck doing better. Notes L side seems tighter, but it was better after last session with the needling Pain: Pain Pain Level: 4 Pain Location: Neck - Left Description: Tightness;Sore Frequency: Continuous OBJECTIVE MEASURES WITH LEVEL OF FUNCTION: Multiple trigger points in B upper traps TREATMENT: Manual Therapy: 1: STM to R upper trap and B cervical paraspinals 2: Manual cervical traction 3: L upper trap stripping x5 min Dry Needling: (1) 50 mm needle to L upper trap with pistoning and fanning Skilled Intervention: Manual skills to improve joint mobility, ROM, and decrease pain. Utilized anatomy knowledge of the therapist, and assessment of patient's response to intervention. Billing Manual TherapyTreatment Minutes: 30 Total Treatment Time Minutes (timed/untimed): 30 Pato Estevez PT documented in this encounter [facility] 06-04-2022 Note HNO ID: [id number] Author: Pato Estevez PT Service: ? Author Type: Physical Therapist Type: Progress Notes Filed: 06/04/2022 2:45 PM Note Text: Episode Visit Count: 4 Therapist That Will Accept/Oversee The Plan Of Care: Pato Estevez Start of Care Date: 04/30/22 Onset Date: 04/30/18 REHABILITATION AND SPORTS THERAPY PHYSICAL THERAPY PROGRESS REPORT PLAN OF CARE UPDATE: Assessment: Valente Adame demonstrates minimal improvement in neck pain. She has progressed toward goals. Patient continues to present with impairments in ADL's, overall function, range of motion, symptom management, and tissue tenderness that interfere with walking;standing;bending;heavy exertion;lifting;working . Current prognosis is Fair due to: clinical presentation;multiple co- morbidities;chronic nature of impairments;limited tolerance to activity;occupational demands . She will benefit from continued skilled therapy services to meet the updated goals for this plan of care as noted below. Goals updated on 06/01/2022. Goals for Episode of Care: created on 04/30/22 through 06/30/22 [place] in home exercise program. Met Patient will decrease pain rating by 2 points to meet minimal clinical important difference for numeric pain rating scale. Met for neck, not for knees Patient will increase active ROM of neck to WNL to allow pt to to improve postural alignment and to improve performance of ADLs. Progressing towards Patient will demonstrate increase in BLE strength to 5/5 during manual muscle testing in order to improve function for home management tasks, leisure / recreation skills, moderate to heavy functional tasks, work tasks, and prior functional tasks. Not met Perform work tasks, stairs, and heavy exertion with decreased report of symptoms/pain in 6-8 weeks. Not met Perform ADLs without pain. Not met Improve postural awareness. Progressing towards Planned Interventions, Frequency, and Duration: 1x/week, 4 weeks Total Number of Visits Planned: 4 Patient to be seen for Therapeutic exercise (70796);Neuromuscular re-education (51787);Manual therapy (21961);Therapeutic activities (69509);Self-halfway management (95493);Patient/Family/Caregiver Education;Body Mechanics Training PLAN FOR NEXT VISIT: continue needling to [place], manual SUBJECTIVE: Patient Reason for Visit: Pt thinks she got a little relief with the needling, the right side of the neck doesn't feel quite as tight. Wants to try it on the left. Neck seems to be getting a little better, but no change in hips or any of her BLE. Functional Limitations: walking;standing;bending;heavy exertion;lifting;working Pain: Pain Pain Level: 5 Pain Location: Knee - Left;Knee - Right Description: Aching;Sore Frequency: Continuous Additional Pain Information : Location 2 Pain Level 2: 3 Pain Location 2: Neck Description 2: Tightness Frequency 2: Continuous PROMIS Scales T-scores: mean of general population = 50. 5 points is clinically meaningfully difference Percentiles provide an indication of how the patient's score ranks in relation to the general population. Higher percentile rankings indicate better function/quality of life. 50th percentile is the average of the general population and indicates half of respondents had a worse score. T-scores: mean of general population = 50. 5 points is clinically meaningfully difference Percentiles provide an indication of how the patient's score ranks in relation to the general population. Higher percentile rankings indicate better function/quality of life. 50th percentile is the average of the general population and indicates half of respondents had a worse score. OBJECTIVE MEASURES WITH LEVEL OF FUNCTION: Spine Observations R Cervical Spine Palpation Tenderness: Upper trapezius L Cervical Spine Palpation Tenderness: Upper trapezius Cervical Spine ROM Cervical Flexion AROM: Normal Cervical Extension AROM: Normal Cervical Side-Bend Right AROM: Minimal limitation Cervical Side-Bend Left AROM: Moderate limitation Cervical Rotation Right AROM: Minimal limitation Cervical Rotation Left AROM: Minimal limitation LE Strength Trunk Strength: 3+/5 R LE Strength: 4/5 L LE Strength: 4-/5 grossly TREATMENT: Manual Therapy: 1: STM to R upper trap and B cervical paraspinals 2: Manual cervical traction 3: L upper trap stripping x5 min Dry Needling: (1) 50 mm needle to L upper trap with pistoning and fanning Skilled Intervention: Manual skills to improve joint mobility, ROM, and decrease pain. Utilized anatomy knowledge of the therapist, and assessment of patient's response to intervention. Billing Manual TherapyTreatment Minutes: 33 Total Treatment Time Minutes (timed/untimed): 33 Pato Estevez, PT [facility] 06-04-2022 History of Presen t illness Narrative Episode Visit Count: 4 Therapist That Will Accept/Oversee The Plan Of Care: Pato Estevez Start of Care Date: 04/30/22 Onset Date: 04/30/18 REHABILITATION AND SPORTS THERAPY PHYSICAL THERAPY PROGRESS REPORT PLAN OF CARE UPDATE: Assessment: Valente Adame demonstrates minimal improvement in neck pain. She has progressed toward goals. Patient continues to present with impairments in ADL's, overall function, range of motion, symptom management, and tissue tenderness that interfere with walking;standing;bending;heavy exertion;lifting;working . Current prognosis is Fair due to: clinical presentation;multiple co- morbidities;chronic nature of impairments;limited tolerance to activity;occupational demands . She will benefit from continued skilled therapy services to meet the updated goals for this plan of care as noted below. Goals updated on 06/01/2022. Goals for Episode of Care: created on 04/30/22 through 06/30/22 [place] in home exercise program. Met Patient will decrease pain rating by 2 points to meet minimal clinical important difference for numeric pain rating scale. Met for neck, not for knees Patient will increase active ROM of neck to WNL to allow pt to to improve postural alignment and to improve performance of ADLs. Progressing towards Patient will demonstrate increase in BLE strength to 5/5 during manual muscle testing in order to improve function for home management tasks, leisure / recreation skills, moderate to heavy functional tasks, work tasks, and prior functional tasks. Not met Perform work tasks, stairs, and heavy exertion with decreased report of symptoms/pain in 6-8 weeks. Not met Perform ADLs without pain. Not met Improve postural awareness. Progressing towards Planned Interventions, Frequency, and Duration: 1x/week, 4 weeks Total Number of Visits Planned: 4 Patient to be seen for Therapeutic exercise (89885);Neuromuscular re-education (75466);Manual therapy (45537);Therapeutic activities (85640);Self-halfway management (16547);Patient/Family/Caregiver Education;Body Mechanics Training PLAN FOR NEXT VISIT: continue needling to [place], manual SUBJECTIVE: Patient Reason for Visit: Pt thinks she got a little relief with the needling, the right side of the neck doesn't feel quite as tight. Wants to try it on the left. Neck seems to be getting a little better, but no change in hips or any of her BLE. Functional Limitations: walking;standing;bending;heavy exertion;lifting;working Pain: Pain Pain Level: 5 Pain Location: Knee - Left;Knee - Right Description: Aching;Sore Frequency: Continuous Additional Pain Information : Location 2 Pain Level 2: 3 Pain Location 2: Neck Description 2: Tightness Frequency 2: Continuous PROMIS Scales T-scores: mean of general population = 50. 5 points is clinically meaningfully difference Percentiles provide an indication of how the patient's score ranks in relation to the general population. Higher percentile rankings indicate better function/quality of life. 50th percentile is the average of the general population and indicates half of respondents had a worse score. T-scores: mean of general population = 50. 5 points is clinically meaningfully difference Percentiles provide an indication of how the patient's score ranks in relation to the general population. Higher percentile rankings indicate better function/quality of life. 50th percentile is the average of the general population and indicates half of respondents had a worse score. OBJECTIVE MEASURES WITH LEVEL OF FUNCTION: Spine Observations R Cervical Spine Palpation Tenderness: Upper trapezius L Cervical Spine Palpation Tenderness: Upper trapezius Cervical Spine ROM Cervical Flexion AROM: Normal Cervical Extension AROM: Normal Cervical Side-Bend Right AROM: Minimal limitation Cervical Side-Bend Left AROM: Moderate limitation Cervical Rotation Right AROM: Minimal limitation Cervical Rotation Left AROM: Minimal limitation LE Strength Trunk Strength: 3+/5 R LE Strength: 4/5 L LE Strength: 4-/5 grossly TREATMENT: Manual Therapy: 1: STM to R upper trap and B cervical paraspinals 2: Manual cervical traction 3: L upper trap stripping x5 min Dry Needling: (1) 50 mm needle to L upper trap with pistoning and fanning Skilled Intervention: Manual skills to improve joint mobility, ROM, and decrease pain. Utilized anatomy knowledge of the therapist, and assessment of patient's response to intervention. Billing Manual TherapyTreatment Minutes: 33 Total Treatment Time Minutes (timed/untimed): 33 Pato Estevez PT documented in this encounter [facility] 05-25-2022 Note HNO ID: [id number] Author: Pato Estevez PT Service: ? Author Type: Physical Therapist Type: Progress Notes Filed: 05/25/2022 1:48 PM Note Text: Episode Visit Count: 3 Therapist That Will Accept/Oversee The Plan Of Care: Pato Estevez Start of Care Date: 04/30/22 Onset Date: 04/30/18 [facility]AB[facility]ATION [facility] SPORTS THERAPY PHYSICAL THERAPY TREATMENT NOTE ASSESSMENT: Valente Adame tolerated the session with expected muscle soreness. She demonstrated difficulty with neck and hip pain, resulting in difficulty with ADLs and work tasks. The patient will continue to benefit from ongoing skilled physical therapy to progress toward set goals. PLAN FOR NEXT VISIT: [place] SUBJECTIVE: Patient Reason for Visit: Pt interested in needling today. No change in pain or symptoms in neck or hips Pain: Pain Pain Level: 5 Pain Location: Knee - Left;Knee - Right;Neck;Hip - Right;Hip - Left Description: Aching;Sore Frequency: Continuous OBJECTIVE MEASURES WITH LEVEL OF FUNCTION: R upper trap reproduced headache pain TREATMENT: Manual Therapy: 1: STM to R upper trap and B cervical paraspinals 2: Manual cervical traction 3: R upper trap stripping x5 min Dry Needling: (1) 50 mm needle to R upper trap with pistoning and fanning Skilled Intervention: Manual skills to improve joint mobility, ROM, and decrease pain. Utilized anatomy knowledge of the therapist, and assessment of patient's response to intervention. Billing Manual TherapyTreatment Minutes: 27 Total Treatment Time Minutes (timed/untimed): 27 Pato Estevez, PT [facility] 05-25-2022 History of Presen t illness Narrative Episode Visit Count: 3 Therapist That Will Accept/Oversee The Plan Of Care: Pato Estevez Start of Care Date: 04/30/22 Onset Date: 04/30/18 REHABILITATION AND SPORTS THERAPY PHYSICAL THERAPY TREATMENT NOTE ASSESSMENT: Valente Adame tolerated the session with expected muscle soreness. She demonstrated difficulty with neck and hip pain, resulting in difficulty with ADLs and work tasks. The patient will continue to benefit from ongoing skilled physical therapy to progress toward set goals. PLAN FOR NEXT VISIT: [place] SUBJECTIVE: Patient Reason for Visit: Pt interested in needling today. No change in pain or symptoms in neck or hips Pain: Pain Pain Level: 5 Pain Location: Knee - Left;Knee - Right;Neck;Hip - Right;Hip - Left Description: Aching;Sore Frequency: Continuous OBJECTIVE MEASURES WITH LEVEL OF FUNCTION: R upper trap reproduced headache pain TREATMENT: Manual Therapy: 1: STM to R upper trap and B cervical paraspinals 2: Manual cervical traction 3: R upper trap stripping x5 min Dry Needling: (1) 50 mm needle to R upper trap with pistoning and fanning Skilled Intervention: Manual skills to improve joint mobility, ROM, and decrease pain. Utilized anatomy knowledge of the therapist, and assessment of patient's response to intervention. Billing Manual TherapyTreatment Minutes: 27 Total Treatment Time Minutes (timed/untimed): 27 Pato Estevez PT documented in this encounter [facility] 05-18-2022 Note HNO ID: [id number] Author: Pato Estevez PT Service: ? Author Type: Physical Therapist Type: Progress Notes Filed: 05/18/2022 11:47 AM Note Text: Episode Visit Count: 2 Therapist That Will Accept/Oversee The Plan Of Care: Pato Estevez Start of Care Date: 04/30/22 Onset Date: 04/30/18 REHABILITATION AND SPORTS THERAPY PHYSICAL THERAPY TREATMENT NOTE ASSESSMENT: Valente Adame tolerated the session with expected muscle soreness and no issues. She demonstrated difficulty with Neck and hip pain. The patient will continue to benefit from ongoing skilled physical therapy to progress toward set goals. PLAN FOR NEXT VISIT: Patient may need aquatic referral, could try dry needling SUBJECTIVE: Patient Reason for Visit: No change. Pt wants to review HEP, feels she may have been doing it wrong Pain: OBJECTIVE MEASURES WITH LEVEL OF FUNCTION: Upper trap reproduced neck pain TREATMENT: Therapeutic Exercise: 1: Upper trap stretch 3x30 sec/side 2: Cervical retractions 3x10 3: SLR 3x10/side 4: SL hip abduction 3x10/side (gave pt handout for progression today) 5: Prone hip extension 3x10/side 6: Clamshells 3x10/side Skilled Intervention: Patient was educated in proper exercise technique and purpose for exercises. Skilled judgment was provided in selection of appropriate interventions. Provided written instruction for home exercise program to facilitate proper performance and compliance. Correct performance of therapeutic exercises was facilitated with verbal, visual, and tactile cuing. Manual Therapy: 1: STM to R upper trap and B cervical paraspinals 2: Manual cervical traction Skilled Intervention: Manual skills to improve joint mobility, ROM, and decrease pain. Utilized anatomy knowledge of the therapist, and assessment of patient's response to intervention. Billing Therapeutic Exercise Treatment Minutes: 30 Manual TherapyTreatment Minutes: 15 Total Treatment Time Minutes (timed/untimed): 45 Pato Estevez PT [facility] 05-18-2022 History of Presen t illness Narrative Episode Visit Count: 2 Therapist That Will Accept/Oversee The Plan Of Care: Pato Estevez Start of Care Date: 04/30/22 Onset Date: 04/30/18 REHABILITATION AND SPORTS THERAPY PHYSICAL THERAPY TREATMENT NOTE ASSESSMENT: Valente Adame tolerated the session with expected muscle soreness and no issues. She demonstrated difficulty with Neck and hip pain. The patient will continue to benefit from ongoing skilled physical therapy to progress toward set goals. PLAN FOR NEXT VISIT: Patient may need aquatic referral, could try dry needling SUBJECTIVE: Patient Reason for Visit: No change. Pt wants to review HEP, feels she may have been doing it wrong Pain: OBJECTIVE MEASURES WITH LEVEL OF FUNCTION: Upper trap reproduced neck pain TREATMENT: Therapeutic Exercise: 1: Upper trap stretch 3x30 sec/side 2: Cervical retractions 3x10 3: SLR 3x10/side 4: SL hip abduction 3x10/side (gave pt handout for progression today) 5: Prone hip extension 3x10/side 6: Clamshells 3x10/side Skilled Intervention: Patient was educated in proper exercise technique and purpose for exercises. Skilled judgment was provided in selection of appropriate interventions. Provided written instruction for home exercise program to facilitate proper performance and compliance. Correct performance of therapeutic exercises was facilitated with verbal, visual, and tactile cuing. Manual Therapy: 1: STM to R upper trap and B cervical paraspinals 2: Manual cervical traction Skilled Intervention: Manual skills to improve joint mobility, ROM, and decrease pain. Utilized anatomy knowledge of the therapist, and assessment of patient's response to intervention. Billing Therapeutic Exercise Treatment Minutes: 30 Manual TherapyTreatment Minutes: 15 Total Treatment Time Minutes (timed/untimed): 45 Pato Estevez PT documented in this encounter [facility] 04-30-2022 Note HNO ID: [id number] Author: Pato Estevez PT Service: ? Author Type: Physical Therapist Type: Progress Notes Filed: 04/30/2022 2:27 PM Note Text: Episode Visit Count: 1 Therapist That Will Accept/Oversee The Plan Of Care: Pato Estevez Start of Care Date: 04/30/22 Onset Date: 04/30/18 Patient Identified by Name and Date of : Yes REHABILITATION AND SPORTS THERAPY PHYSICAL THERAPY EVALUATION PLAN OF CARE: Assessment: Valente Adame presents with chief complaint of chronic pain, headaches, and difficulty with ADLs and IADLs that interferes with rising from a chair;standing;walking;heavy exertion;stair negotiation;lifting;physical activities;recreational activities;running;working;sleep ing . She presents with impairments in ADL's, independence in exercise, overall function, posture, range of motion, strength , symptom management, and tissue tenderness. Prognosis for therapy is Fair due to: clinical presentation;multiple co- morbidities;chronic nature of impairments;limited tolerance to activity;occupational demands . She will benefit from skilled therapy services to meet the goals established for this plan of care as noted below. Goals for Episode of Care: created on 04/30/22 through 06/30/22 [place] in home exercise program. Patient will decrease pain rating by 2 points to meet minimal clinical important difference for numeric pain rating scale. Patient will increase active ROM of neck to WNL to allow pt to to improve postural alignment and to improve performance of ADLs. Patient will demonstrate increase in BLE strength to 5/5 during manual muscle testing in order to improve function for home management tasks, leisure / recreation skills, moderate to heavy functional tasks, work tasks, and prior functional tasks. Perform work tasks, stairs, and heavy exertion with decreased report of symptoms/pain in 6-8 weeks. Perform ADLs without pain. Improve postural awareness. Planned Interventions, Frequency, and Duration: Current Frequency: 2x/week Duration: 8 weeks Total Number of Visits Planned: 16 Planned Treatment Interventions: Therapeutic exercise (68657);Neuromuscular re-education (67939);Manual therapy (75737);Therapeutic activities (80471);Self-halfway management (36184);Patient/Family/Caregiver Education;Body Mechanics Training PLAN FOR NEXT VISIT: Manual to upper traps, assess HEP, maybe try step ups cuing for no dynamic valgus Patient demonstrates good understanding of plan of care and treatment. The above goals and plan of care were discussed and agreed upon by patient/family. SUBJECTIVE: Valente Adame is a 21 year old female seen today for Fibromyalgia, neck pain with headaches, and B knee and hip pain. Pt used to be an [employer] when all this started. Feels like all the heavy lifting caused this, and even since quitting she still continues to have pain. Now works from home at the computer. usually hurts worse the more she does, Functional Limitations: rising from a chair;standing;walking;heavy exertion;stair negotiation;lifting;physical activities;recreational activities;running;working;sleep ing Prior Level of Function: Independent without limitations Intake Information: Prescription present Pain: Pain Pain Level: 5 Pain Location: Knee - Left;Knee - Right Description: Aching;Sore;Sharp Frequency: Continuous Post Treatment Pain Post Treatment Pain Level: No Change PROMIS Scales T-scores: mean of general population = 50. 5 points is clinically meaningfully difference Percentiles provide an indication of how the patient's score ranks in relation to the general population. Higher percentile rankings indicate better function/quality of life. 50th percentile is the average of the general population and indicates half of respondents had a worse score. T-scores: mean of general population = 50. 5 points is clinically meaningfully difference Percentiles provide an indication of how the patient's score ranks in relation to the general population. Higher percentile rankings indicate better function/quality of life. 50th percentile is the average of the general population and indicates half of respondents had a worse score. OBJECTIVE MEASURES WITH LEVEL OF FUNCTION: Knee Observations L Knee Presents with: Swelling L Swelling: subpatellar R Knee Palpation Tenderness: Lateral joint line;Medial joint line;Quadriceps L Knee Palpation Tenderness: Medial joint line;Lateral joint line;Quadriceps Spine Observations R Cervical Spine Palpation Tenderness: Upper trapezius L Cervical Spine Palpation Tenderness: Upper trapezius Cervical Spine ROM Cervical ROM : Limitation AROM Cervical Flexion AROM: Normal Cervical Extension AROM: Normal Cervical Side-Bend Right AROM: Moderate limitation Cervical Side-Bend Left AROM: Moderate limitation Cervical Rotation Right AROM: Minimal limitation Cervical Rotation Left AROM: M (more content not included)... [facility] 04-30-2022 History of Presen t illness Narrative Episode Visit Count: 1 Therapist That Will Accept/Oversee The Plan Of Care: Pato Estevez Start of Care Date: 04/30/22 Onset Date: 04/30/18 Patient Identified by Name and Date of : Yes REHABILITATION AND SPORTS THERAPY PHYSICAL THERAPY EVALUATION PLAN OF CARE: Assessment: Valente Adame presents with chief complaint of chronic pain, headaches, and difficulty with ADLs and IADLs that interferes with rising from a chair;standing;walking;heavy exertion;stair negotiation;lifting;physical activities;recreational activities;running;working;sleep ing . She presents with impairments in ADL's, independence in exercise, overall function, posture, range of motion, strength , symptom management, and tissue tenderness. Prognosis for therapy is Fair due to: clinical presentation;multiple co- morbidities;chronic nature of impairments;limited tolerance to activity;occupational demands . She will benefit from skilled therapy services to meet the goals established for this plan of care as noted below. Goals for Episode of Care: created on 04/30/22 through 06/30/22 [place] in home exercise program. Patient will decrease pain rating by 2 points to meet minimal clinical important difference for numeric pain rating scale. Patient will increase active ROM of neck to WNL to allow pt to to improve postural alignment and to improve performance of ADLs. Patient will demonstrate increase in BLE strength to 5/5 during manual muscle testing in order to improve function for home management tasks, leisure / recreation skills, moderate to heavy functional tasks, work tasks, and prior functional tasks. Perform work tasks, stairs, and heavy exertion with decreased report of symptoms/pain in 6-8 weeks. Perform ADLs without pain. Improve postural awareness. Planned Interventions, Frequency, and Duration: Current Frequency: 2x/week Duration: 8 weeks Total Number of Visits Planned: 16 Planned Treatment Interventions: Therapeutic exercise (86182);Neuromuscular re-education (47933);Manual therapy (85894);Therapeutic activities (60210);Self-halfway management (78715);Patient/Family/Caregiver Education;Body Mechanics Training PLAN FOR NEXT VISIT: Manual to upper traps, assess HEP, maybe try step ups cuing for no dynamic valgus Patient demonstrates good understanding of plan of care and treatment. The above goals and plan of care were discussed and agreed upon by patient/family. SUBJECTIVE: Valente Adame is a 21 year old female seen today for Fibromyalgia, neck pain with headaches, and B knee and hip pain. Pt used to be an [employer]ER when all this started. Feels like all the heavy lifting caused this, and even since quitting she still continues to have pain. Now works from home at the computer. usually hurts worse the more she does, Functional Limitations: rising from a chair;standing;walking;heavy exertion;stair negotiation;lifting;physical activities;recreational activities;running;working;sleep ing Prior Level of Function: Independent without limitations Intake Information: Prescription present Pain: Pain Pain Level: 5 Pain Location: Knee - Left;Knee - Right Description: Aching;Sore;Sharp Frequency: Continuous Post Treatment Pain Post Treatment Pain Level: No Change PROMIS Scales T-scores: mean of general population = 50. 5 points is clinically meaningfully difference Percentiles provide an indication of how the patient's score ranks in relation to the general population. Higher percentile rankings indicate better function/quality of life. 50th percentile is the average of the general population and indicates half of respondents had a worse score. T-scores: mean of general population = 50. 5 points is clinically meaningfully difference Percentiles provide an indication of how the patient's score ranks in relation to the general population. Higher percentile rankings indicate better function/quality of life. 50th percentile is the average of the general population and indicates half of respondents had a worse score. OBJECTIVE MEASURES WITH LEVEL OF FUNCTION: Knee Observations L Knee Presents with: Swelling L Swelling: subpatellar R Knee Palpation Tenderness: Lateral joint line;Medial joint line;Quadriceps L Knee Palpation Tenderness: Medial joint line;Lateral joint line;Quadriceps Spine Observations R Cervical Spine Palpation Tenderness: Upper trapezius L Cervical Spine Palpation Tenderness: Upper trapezius Cervical Spine ROM Cervical ROM : Limitation AROM Cervical Flexion AROM: Normal Cervical Extension AROM: Normal Cervical Side-Bend Right AROM: Moderate limitation Cervical Side-Bend Left AROM: Moderate limitation Cervical Rotation Right AROM: Minimal limitation Cervical Rotation Left AROM: Minimal limitation UE and Cervical Strength R UE Strength: 5/5 L UE Strength: 5/5 LE Strength Trunk Strength: 3+/5 R LE Strength: 4/5 L LE Strength: 4-/5 grossly Special Tests - Knee Knee Special Tests: Freeman;Katie's Test Freeman: Left Negative;Right Negative Katie's Test: Right Negative;Left Negative Education: Education Learning/educational needs: Home exercise program;Plan of Care;Changes in Plan of Care;Posture;Body Mechanics TREATMENT: PT Treatment Interventions: Therapeutic Exercise;Self-Half-Way Management Evaluation Therapeutic Exercise: 1: *Upper trap stretch 3x30 sec/side 2: *Cervical retractions 3x10 3: *SLR 3x10/side 4: *SL hip abduction 3x10/side 5: *Prone hip extension 3x10/side 6: *Clamshells 3x10/side Skilled Intervention: Patient was educated in proper exercise technique and purpose for exercises. Skilled judgment was provided in selection of appropriate interventions. Provided written instruction for home exercise program to facilitate proper performance and compliance. Correct performance of therapeutic exercises was facilitated with verbal, visual, and tactile cuing. Self-Half-Way Management: 1: Discussed postural considerations for work tasks/computer work to decrease pain. Also discussed getting up and taking breaks from sitting during her day Skilled Intervention: Skilled judgment in the selection of proper modification for activity of daily living/home management based on clinical presentation, deficits, and needs. Reviewed patient specific diagnosis in relation to activities of daily living/home management. Activity progression based on professional judgement. Billing * Evaluation Low Complexity: 1 Unit Therapeutic Exercise Treatment Minutes: 15 Self-Care/Home Management Treatment Minutes: 10 Total Treatment Time Minutes (timed/untimed): 48 Pato Estevez PT documented in this encounter [facility] 03-01-2022 Miscellaneous Notes Notified via [employer] that she is due for appt with her PCP. Madison Murray Ma 3 rd attempt left message to return call to schedule Patient due for follow-up, MUST BE WITH DR PARISI. My chart message also sent. 2 nd attempt left message to return call to schedule Patient due for follow-up, MUST BE WITH DR PARISI. My chart message also sent. 1st attempt left message to return call to schedule Patient due for follow-up, MUST BE WITH DR PARISI Patient due for follow-up, MUST BE WITH DR AILIN Cochran APRN.CNP LETA: 09/06/2021 Last refill: 12/15/2021 QTY: 30 Refills: 1 documented in this encounter [facility] 12-14-2021 Miscellaneous Notes Patient has been identified by name and date of : Yes Patient phones for refill(s): Pending Prescriptions Disp Refills MELOXICAM 15 MG TABLET 30 tablet 1 Sig: Take 1 tablet by mouth once daily. With food. MYA: No Date of last office visit in primary care: 09/06/2021 No future appt scheduled. Last 2 Encounter Wt Readings: Date: Wt: 09/06/2021 60.8 kg (134 lb) 07/20/2020 59.7 kg (131 lb 9.6 oz) Previous labs/tests for medication: Not applicable Please advise. Thank you. Eleonora Powell LPN Patient has been identified by name and date of : Yes Pending Prescriptions Disp Refills MELOXICAM 15 MG TABLET 30 tablet 1 Sig: Take 1 tablet by mouth once daily. With food. MYA: No RX INSTRUCTIONS: Patient aware RX will be sent to pharmacy. No need to notify patient. Amina Hernandez documented in this encounter [facility] 09-08-2021 Miscellaneous Notes Addressed in phone encounter Erica Cochran APRN.CNP documented in this encounter [facility] 09-08-2021 Miscellaneous Notes Pt called and is notified of providers message and instructions. Pt voices understanding. Leonor Horton RN Left message to call office. 09/08/2021 10:20 AM She should take the Meloxicam that I prescribed for pain. The medication I discussed with her can take a few weeks for effectiveness, it is not specifically a pain medicine. Erica Cochran APRN.CNP Pt called I and reports she tried calling her psychiatrists office about switching her medications. She was told he is out for a week, and he would only switch her medication if he talked with her first. She states she doesn't think she can wait for him to get back to get the meds switched, and want to see if the provider could call Dr Misbah Cevallos at # [phone]. I let the Pt know that if he is not in then this provider would more than likely not be able to get a hold of him. Please call and advise. documented in this encounter [facility] 09-06-2021 Instructions Erica Cochran APRN.CNP - 09/06/2021 4:45 PM EDT Discuss treatment with either Cymbalta or Elavil for pain with your psychiatrist documented in this encounter [facility] 09-06-2021 History of Presen t illness Narrative CC: Patient presents with: Establish Care: c/o joint pain HPI Valente Adame is a 21 year old female who presents today for above. Previous PCP in pediatrics. Her main concern today is ongoing joint pain x 1-2 years, worsening over the past few months. Pain is located bilateral fingers, knees and hips with occasional pain in the low back, neck and ankles. Associated symptoms: intermittent swelling and redness of joints, not usually at the same time. Knees make creaking/grating sounds. Aggravated by: activity Alleviated by: rest, NSAID's Denies: morning stiffness, pain that is relived with activity, fever, chills, malaise, fatigue, rashes, unintentional weight loss, myalgias. No history of COVID that she is aware of Denies history of joint injury. She works as an NA and housekeeping, on her feet a lot along with lifting, bending, twisting. 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 She had no adverse affects while taking. Family history- Paternal grandmother had RA. Medications for depression and anxiety are managed by [facility] psychiat[facility]. No recent dosage adjustments, feels symptoms are mostly controlled. She is not in counseling. REVIEW OF SYSTEMS General: See HPI HEENT: no frequent or significant headaches, no changes in hearing, no visual changes Respiratory: no cough, no wheezing, no shortness of breath, no hemoptysis Cardiovascular: no chest pain, no chest pressure, no palpitations, no swelling and no decrease in exercise tolerance GI: Negative for abdominal discomfort, blood in stools or black stools, change in bowel habit, heart burn, nausea, vomiting : Negative for dysuria, frequency, incontinence and nocturia >1 Hematologic/Lymph: Negative for prolonged bleeding, bruising easily or swollen nodes Endocrine: no hair loss, no dry skin, no cold intolerance, no heat intolerance, no trouble swallowing, no neck pain/pressure, no polyphagia and no polydipsia Neurologic: no dizziness, no vertigo, no memory loss, no confusion, no numbness or tingling of hands, no numbness or tingling of feet, no muscle weakness, no neck stiffness, no involuntary movements, no tremor PAST MEDICAL HISTORY Diagnosis Date ADHD (attention deficit hyperactivity disorder) Attention deficit hyperactivity disorder (ADHD), combined type 04/11/2015 Bowel dysfunction 12/04/2016 Bulimia nervosa 09/06/2021 Chronic otitis media of both ears Constipation 04/11/2015 Eating disorder, 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 busPIRone (BUSPAR) 15 mg tablet Take 30 mg by mouth twice daily. etonogestrel (NEXPLANON) subdermal implant 68 mg 1 Each by SUBDERMAL route as directed. FLUoxetine HCl (PROZAC) 40 mg capsule Take 2 capsules by mouth once daily. meloxicam (MOBIC) 15 mg tablet Take 1 tablet by mouth once daily. With food. FAMILY HISTORY Problem Relation Age of Onset Kidney Disease Mother nephritis Headache Mother migraine Hypertension Maternal Grandmother Breast Cancer Maternal Grandmother carries breast gene Diabetes Maternal Grandfather type 2 Lipids Maternal Grandfather Hypertension Maternal Grandfather Blood Disease Maternal Grandfather refractory anemia Diabetes Paternal Grandfather type 2 Rheumatologic disease Other RA Social History Tobacco Use Smoking status: Former Smoker Packs/day: 0.50 Years: 2.00 Pack years: 1.00 Types: Cigarettes Quit date: 2020 Years since quittin.2 Smokeless tobacco: Never Used Vaping Use Vaping Use: Former Substance Use Topics Alcohol use: Yes Comment: occasional Drug use: No PHYSICAL EXAM BP 120/82 Pulse 78 Resp 16 Ht 153 cm (5' 0.25 ) Wt 60.8 kg (134 lb) LMP 05/26/2017 SpO2 97% BMI 25.95 kg/m General Appearance: well appearing, in no acute distress, alert Pysch: affect is anxious Skin: Skin color, texture, turgor normal for age; Eyes: conjunctiva pink and moist, no icterus, sclera white, non-injected Neck: Thyroid normal size and symmetric without palpable nodules, Neck supple, No adenopathy Lymph nodes: No supraclavicular lymphadenopathy Back: No pain to palpation, Full and painless ROM including flexion, extension, lateral side bending and rotation Lungs: Lungs clear to auscultation. No wheezing, rhonchi, rales. Heart: RRR without murmur, gallop, or rubs. No ectopy Musculoskeletal: No joint swelling, deformity. Bilateral hands- PIP joints tender bilateral 3rd fingers. Full ROM. No crepitus. Bilateral hip- tenderness with palpation of lateral hips. Full ROM but painful with external rotation, abduction, adduction and flexion. Bilateral knees: tenderness with palpation of bilateral medial knee. Full ROM, painful with extension. No laxity. Negative valgus/varus. Ext: no edema in LE bilaterally, good distal pulses, capillary refill < 2 seconds ASSESSMENT/PLAN: 1. Chronic pain of multiple joints - ICD9: 719.49, 338.29, ICD10: M25.50, G89.29 (primary diagnosis) Differentials include overuse, osteoarthritis, inflammatory arthritis, autoimmune Work-up with: - CBC + DIFF - COMP METABOLIC PANEL - TSH BLD - RHEUMATOID FACTOR BL - [place] BY IFA SCREEN - SED RATE WESTERGREN - C-REACTIVE PROTEIN (CRP) - VITAMIN D 25 HYDROXY Start Meloxicam, take once a day with food Discussed other potential treatments for chronic pain if labs are normal including Cymbalta and Elavil. Advised patient she will need to discuss these medications with psychiatrist before I can prescribe Follow-up pending results of work-up 2. Generalized anxiety disorder - ICD9: 300.02, ICD10: F41.1 Managed by [facility] psychiat[facility]. Follow-up as directed 3. Moderate episode of recurrent major depressive disorder (HCC) - ICD9: 296.32, ICD10: F33.1 As above Prescription instructions reviewed with patient as applicable. Potential red flag symptoms discussed with the patient. Reviewed appropriate action plan to take if red flag symptoms occur. Patient agreeable to treatment plan. Erica Cochran APRN.CNP documented in this encounter [facility] 09-06-2021 Miscellaneous Notes I will order all appropriate labs at the office visit after evaluating patient Erica Cochran APRN.CNP Patient Mother calls and states that patient has an appointment scheduled with provider this afternoon. Mother states that patient has been having constant joint pain where her fingers have been swollen. Patient's fathers side of family has a history of rheumatoid arthritis. Patient has a history of growth hormone deficiency. 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 Mother asking if labs can be ordered to check for RA? 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 Constipation 04/11/2015 09/06/2021 Attention deficit hyperactiv ity disorder (ADHD), combined type 04/11/2015 09/06/2021 documented as of this encounter (statuses as of 09/06/2021) [facility] History of Past illness Narrative* Problem Noted Date Resolved Date Bowel dysfunction 12/04/2016 09/06/2021 Eating disorder, 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 Constipation 04/11/2015 09/06/2021 Attention deficit hyperactiv ity disorder (ADHD), combined type 04/11/2015 09/06/2021 documented as of this encounter (statuses as of 09/08/2021) [facility] History of Past illness Narrative* Problem Noted Date Resolved Date Bowel dysfunction 12/04/2016 09/06/2021 Eating disorder, 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 Constipation 04/11/2015 09/06/2021 Attention deficit hyperactiv ity disorder (ADHD), combined type 04/11/2015 09/06/2021 documented as of this encounter (statuses as of 09/08/2021) [facility] History of Past illness Narrative* Problem Noted Date Resolved Date Bowel dysfunction 12/04/2016 09/06/2021 Eating disorder, 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 Constipation 04/11/2015 09/06/2021 Attention deficit hyperactiv ity disorder (ADHD), combined type 04/11/2015 09/06/2021 documented as of this encounter (statuses as of 09/12/2021) [facility] History of Past illness Narrative* Problem Noted Date Resolved Date Bowel dysfunction 12/04/2016 09/06/2021 Eating disorder, 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 Constipation 04/11/2015 09/06/2021 Attention deficit hyperactiv ity disorder (ADHD), combined type 04/11/2015 09/06/2021 documented as of this encounter (statuses as of 12/15/2021) [facility] History of Past illness Narrative* Problem Noted Date Resolved Date Bowel dysfunction 12/04/2016 09/06/2021 Eating disorder, 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 Constipation 04/11/2015 09/06/2021 Attention deficit hyperactiv ity disorder (ADHD), combined type 04/11/2015 09/06/2021 documented as of this encounter (statuses as of 12/20/2021) [facility] History of Past illness Narrative* Problem Noted Date Resolved Date Bowel dysfunction 12/04/2016 09/06/2021 Eating disorder, 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 Constipation 04/11/2015 09/06/2021 Attention deficit hyperactiv ity disorder (ADHD), combined type 04/11/2015 09/06/2021 documented as of this encounter (statuses as of 03/01/2022) [facility] History of Past illness Narrative* Problem Noted Date Resolved Date Bowel dysfunction 12/04/2016 09/06/2021 Eating disorder, 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 Constipation 04/11/2015 09/06/2021 Attention deficit hyperactiv ity disorder (ADHD), combined type 04/11/2015 09/06/2021 documented as of this encounter (statuses as of 03/01/2022) [facility] History of Past illness Narrative* Problem Noted Date Resolved Date Bowel dysfunction 12/04/2016 09/06/2021 Eating disorder, 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 Constipation 04/11/2015 09/06/2021 Attention deficit hyperactiv ity disorder (ADHD), combined type 04/11/2015 09/06/2021 documented as of this encounter (statuses as of 05/01/2022) [facility] History of Past illness Narrative* Problem Noted Date Resolved Date Bowel dysfunction 12/04/2016 09/06/2021 Eating disorder, 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 Constipation 04/11/2015 09/06/2021 Attention deficit hyperactiv ity disorder (ADHD), combined type 04/11/2015 09/06/2021 documented as of this encounter (statuses as of 05/18/2022) [facility] History of Past illness Narrative* Problem Noted Date Resolved Date Bowel dysfunction 12/04/2016 09/06/2021 Eating disorder, 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 Constipation 04/11/2015 09/06/2021 Attention deficit hyperactiv ity disorder (ADHD), combined type 04/11/2015 09/06/2021 documented as of this encounter (statuses as of 05/25/2022) [facility] History of Past illness Narrative* Problem Noted Date Resolved Date Bowel dysfunction 12/04/2016 09/06/2021 Eating disorder, 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 Constipation 04/11/2015 09/06/2021 Attention deficit hyperactiv ity disorder (ADHD), combined type 04/11/2015 09/06/2021 documented as of this encounter (statuses as of 06/04/2022) [facility] History of Past illness Narrative* Problem Noted Date Resolved Date Bowel dysfunction 12/04/2016 09/06/2021 Eating disorder, 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 Constipation 04/11/2015 09/06/2021 Attention deficit hyperactiv ity disorder (ADHD), combined type 04/11/2015 09/06/2021 documented as of this encounter (statuses as of 06/05/2022) [facility] History of Past illness Narrative* Problem Noted Date Resolved Date Bowel dysfunction 12/04/2016 09/06/2021 Eating disorder, 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 Constipation 04/11/2015 09/06/2021 Attention deficit hyperactiv ity disorder (ADHD), combined type 04/11/2015 09/06/2021 documented as of this encounter (statuses as of 06/28/2022) [facility] History of Past illness Narrative* Problem Noted Date Resolved Date Bowel dysfunction 12/04/2016 09/06/2021 Eating disorder, 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 Constipation 04/11/2015 09/06/2021 Attention deficit hyperactiv ity disorder (ADHD), combined type 04/11/2015 09/06/2021 documented as of this encounter (statuses as of 06/29/2022) [facility] History of Past illness Narrative* Problem Noted Date Resolved Date Bowel dysfunction 12/04/2016 09/06/2021 Eating disorder, 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 Constipation 04/11/2015 09/06/2021 Attention deficit hyperactiv ity disorder (ADHD), combined type 04/11/2015 09/06/2021 documented as of this encounter (statuses as of 08/24/2022) [facility] History of Past illness Narrative* Problem Noted Date Resolved Date Bowel dysfunction 12/04/2016 09/06/2021 Eating disorder, 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 Constipation 04/11/2015 09/06/2021 Attention deficit hyperactiv ity disorder (ADHD), combined type 04/11/2015 09/06/2021 documented as of this encounter (statuses as of 12/20/2022) [facility] History of Past illness Narrative* Problem Noted Date Diagnosed Date Resolved Date Bowel dysfunction 12/04/2016 09/06/2021 Eating disorder, nonorganic 12/04/2016 09/06/2021 Constipation 04/11/2015 09/06/2021 Attention deficit hyperactiv ity disorder (ADHD), combined type 04/11/2015 09/06/2021 documented as of this encounter (statuses as of 05/02/2023) [facility] Diagnosis Chronic pain of multiple joints- Primary Pain in joint, multiple sites Generalized anxiety disorder Moderate episode of recurrent major depressive disorder (HCC) documented in this encounter [facility] note* Diagnosis Vitamin D deficiency- Primary Unspecified vitamin D deficiency documented in this encounter [facility] note* Diagnosis Fibromyalgia- Primary Mylagia and myositis, unspecified documented in this encounter [facility] note* Diagnosis Fibromyalgia- Primary Mylagia and myositis, unspecified documented in this encounter [facility] note* Diagnosis Fibromyalgia- Primary Mylagia and myositis, unspecified documented in this encounter [facility] note* Diagnosis Fibromyalgia- Primary Mylagia and myositis, unspecified documented in this encounter [facility] note* Diagnosis APPOINTMENT CANCELLED- Primary documented in this encounter [facility] Summary Purpose Family History No Family History Records FoundNo Family History Records Found Advance Directives No Advanced Directives Records FoundNo Advanced Directives Records Found Additional Source Comments INFORMATION SOURCE (unrecogn ized section and content) DATE CREATED AUTHOR AUTHOR'S ORGANIZ ATION 04/28/2023 [facility] Source Comments (unrecognize d section and content) In the event this informatio n is protected by the Federal Confidentiality of Alcohol and Drug Abuse Patient Records regulations: The Federal rules restrict any use of the information to criminally investigate or prosecute any alcohol or drug abuse patient.[facility] the event this information is protected by the Federal Confidentiality of Alcohol and Drug Abuse Patient Records regulations: The Federal rules restrict any use of the information to criminally investigate or prosecute any alcohol or drug abuse patient.[facility] the event this information is protected by the Federal Confidentiality of Alcohol and Drug Abuse Patient Records regulations: The Federal rules restrict any use of the information to criminally investigate or prosecute any alcohol or drug abuse patient.[facility] the event this information is protected by the Federal Confidentiality of Alcohol and Drug Abuse Patient Records regulations: The Federal rules restrict any use of the information to criminally investigate or prosecute any alcohol or drug abuse patient.[facility] the event this information is protected by the Federal Confidentiality of Alcohol and Drug Abuse Patient Records regulations: The Federal rules restrict any use of the information to criminally investigate or prosecute any alcohol or drug abuse patient.[facility] the event this information is protected by the Federal Confidentiality of Alcohol and Drug Abuse Patient Records regulations: The Federal rules restrict any use of the information to criminally investigate or prosecute any alcohol or drug abuse patient.[facility] the event this information is protected by the Federal Confidentiality of Alcohol and Drug Abuse Patient Records regulations: The Federal rules restrict any use of the information to criminally investigate or prosecute any alcohol or drug abuse patient.[facility] the event this information is protected by the Federal Confidentiality of Alcohol and Drug Abuse Patient Records regulations: The Federal rules restrict any use of the information to criminally investigate or prosecute any alcohol or drug abuse patient.[facility] the event this information is protected by the Federal Confidentiality of Alcohol and Drug Abuse Patient Records regulations: The Federal rules restrict any use of the information to criminally investigate or prosecute any alcohol or drug abuse patient.[facility] the event this information is protected by the Federal Confidentiality of Alcohol and Drug Abuse Patient Records regulations: The Federal rules restrict any use of the information to criminally investigate or prosecute any alcohol or drug abuse patient.[facility] the event this information is protected by the Federal Confidentiality of Alcohol and Drug Abuse Patient Records regulations: The Federal rules restrict any use of the information to criminally investigate or prosecute any alcohol or drug abuse patient.[facility] the event this information is protected by the Federal Confidentiality of Alcohol and Drug Abuse Patient Records regulations: The Federal rules restrict any use of the information to criminally investigate or prosecute any alcohol or drug abuse patient.[facility] the event this information is protected by the Federal Confidentiality of Alcohol and Drug Abuse Patient Records regulations: The Federal rules restrict any use of the information to criminally investigate or prosecute any alcohol or drug abuse patient.[facility] the event this information is protected by the Federal Confidentiality of Alcohol and Drug Abuse Patient Records regulations: The Federal rules restrict any use of the information to criminally investigate or prosecute any alcohol or drug abuse patient.[facility] the event this information is protected by the Federal Confidentiality of Alcohol and Drug Abuse Patient Records regulations: The Federal rules restrict any use of the information to criminally investigate or prosecute any alcohol or drug abuse patient.[facility] the event this information is protected by the Federal Confidentiality of Alcohol and Drug Abuse Patient Records regulations: The Federal rules restrict any use of the information to criminally investigate or prosecute any alcohol or drug abuse patient.[facility] the event this information is protected by the Federal Confidentiality of Alcohol and Drug Abuse Patient Records regulations: The Federal rules restrict any use of the information to criminally investigate or prosecute any alcohol or drug abuse patient.[facility] the event this information is protected by the Federal Confidentiality of Alcohol and Drug Abuse Patient Records regulations: The Federal rules restrict any use of the information to criminally investigate or prosecute any alcohol or drug abuse patient.[facility] the event this information is protected by the Federal Confidentiality of Alcohol and Drug Abuse Patient Records regulations: The Federal rules restrict any use of the information to criminally investigate or prosecute any alcohol or drug abuse patient.[facility] Reason for Visit (unrecogniz ed section and content) Specialty Diagnoses / Procedures Referred By Flash t Referred To Contact Physical Therapy / PHYSICAL THERAPY Diagnoses PT Procedures EST RS PT ORTH MSK Erica Cochran APRN.BIODIESEL PROCESS CONTROL TECHNICIAN [address] [place] [address] Pato Estevez PT Referral ID Status Reason Start Date Expiration Date V isits Requested Visits Authorized [id number] Pending Review 06/22/2022 09/20/2022 1 1 Specialty Diagnoses / Procedures Referred By Contac t Referred To Contact [facility] Diagnoses Fibromyalgia Procedures CONSULT TO PHYSICAL THERAPY PHYSICAL THERAPY EVALUATION HIGH COMPLEX 45 MINS Erica Cochran APRN.BIODIESEL PROCESS CONTROL TECHNICIAN [address] [place] [address] [facility] [address] [place] [address] Referral ID Status Reason Start Date Expiration Date Visits Requested Visits Authorized [id number] Authorized Auto-Generat ed Referral 06/17/2021 06/16/2022 30 30 Reason Comments PT Progress Note Reason Comments Patient Update Reason Comments Establish Care c/o joint pain Reason Comments Patient Question Reason Onset Date Comments Refill Request 12/14/2021 Reason Onset Date Comments Refill Request 02/20/2022 Reason Comments PT Eval Reason Comments Orders Reason Comments Appointment Cancelled Care Teams (unrecognized sec tion and content) Air Marshal Relationship Specialty Start Date End Date Sigifredo Parisi MD [address] [facility] [place] [address] PCP - General Internal Medicine 09/06/21 Air Marshal Relationship Specialty Start Date End Date Sigifredo Parisi MD [address] [facility] [place] [address] PCP - General Internal Medicine 09/06/21 Air Marshal Relationship Specialty Start Date End Date Sigifredo Parisi MD [address] [facility] [place] [address] PCP - General Internal Medicine 09/06/21 Air Marshal Relationship Specialty Start Date End Date Sigifredo Parisi MD [address] [facility] [place] [address] PCP - General Internal Medicine 09/06/21 Air Marshal Relationship Specialty Start Date End Date Sigifredo Parisi MD [address] [facility] [place] [address] PCP - General Internal Medicine 09/06/21 Air Marshal Relationship Specialty Start Date End Date Sigifredo Parisi MD [address] [facility] [place] [address] PCP - General Internal Medicine 09/06/21 Air Marshal Relationship Specialty Start Date End Date Sigifredo Parisi MD [address] [facility] [place] [address] PCP - General Internal Medicine 09/06/21 Air Marshal Relationship Specialty Start Date End Date Sigifredo Parisi MD [address] [facility] [place] [address] PCP - General Internal Medicine 09/06/21 Air Marshal Relationship Specialty Start Date End Date Sigifredo Parisi MD [address] [facility] [place] [address] PCP - General Internal Medicine 09/06/21 Air Marshal Relationship Specialty Start Date End Date Sigifredo Parisi MD [address] [facility] [place] DC [id number] PCP - General Internal Medicine 09/06/21 Air Marshal Relationship Specialty Start Date End Date Sigifredo Parisi MD [address] [facility] [place] [id number] PCP - General Internal Medicine 09/06/21 FOR RECORDS PERTAINING TO PATIENTS WHO ARE OR HAVE BEEN ENROLLED IN A CHEMICAL DEPENDENCY/SUBSTANCEABUSE PROGRAM, SOME INFORMATION MAY BE OMITTED. This clinical summary was aggregated from multiple sources. Caution should be exercised in using it in the provision of clinical care. This summary normalizes information from multiple sources, and as a consequence, information in this document may materially change the coding, format and clinical context of patient data. In addition, data may be omitted in some cases. CLINICAL DECISIONS SHOULD BE BASED ON THE PRIMARY CLINICAL RECORDS. [facility]. provides no warranty or guarantee of the accuracy or completeness of information in this document.
== END | disposition home or self-care (01) ==
LOC: CT 17:43
PROVIDERS: Referring Provider Surgery; Visit Provider Surgery
DX: R06.89 Other abnormalities of breathing (principal); J98.8 Other specified respiratory disorders; J34.2 Deviated nasal septum; J34.89 Other specified disorders of nose and nasal sinuses; S00.33XS Contusion of nose, sequela; Z87.898 Personal history of other specified conditions
CPT/HCPCS: 70486

== ENCOUNTER → 2023-12-05 | Outpatient (CLI) | payer OTHER, SELFPAY ==
[2023-12-05 11:45] LABS: Absolute Lymphocyte Count 1.86 X10^3/uL (0.83-4.51); Basophil# 0.04 X10^3/uL; Basophil% 0.5 % (0-1); Eosinophil# 0.06 X10^3/uL; Eosinophils% 0.8 % (0-5); Hematocrit 41.4 % (37-47); Hemoglobin 13.4 g/dL (12.0-15.0); Lymphocyte # 1.86 X10^3/ul (0.83-4.51); Lymphocyte % 24.6 % (19-41); Mean Corp Hgb Conc 32.4 g/dL (32-36); Mean Corpuscular Hgb 28.3 pg (27.0-32.0); Mean Corpuscular Volume 87.5 fL (81-99); Mean Platelet Vol. 9.8 fl (6.2-12.0); Monocyte# 0.61 X10^3/uL; Monocyte% 8.1 % (0-10); NRBC Flagged by Analyzer 0 % (0-5); Neutrophil # 4.96 X10^3/uL (2.7-7.7); Neutrophil % 65.7 % (47-70); Platelet Count 240 K/mm3 (150-450); RBC Distribution Width CV 12.9 % (11.6-14.6); RBC Distribution Width SD 41.6 fl (35.1-43.9); Red Blood Count 4.73 M/mm3 (4.2-5.4); White Blood Count 7.6 K/mm3 (4.4-11.0)
[2023-12-05 12:29] LABS: ALB/GLOB Ratio 1.6 RATIO (0.9-2.4); AST(SGOT) 18 U/L (15-37); Alanine Aminotransfer ALT/SGPT 16 U/L (13-56); Albumin, Serum 4.1 g/dL (3.2-5.0); Alkaline Phosphatase 58 U/L (45-117); Anion Gap 0 (5-15); BUN 14 mg/dL (7-18); BUN/Creat Ratio 20.7 RATIO (10-20); Calcium,Total 8.6 mg/dL (8.5-10.1); Chloride 106 mmol/L (98-107); Cholesterol 150 mg/dL (200); Creatinine, Serum 0.68 mg/dL (0.55-1.02); EST Glomerular Filtration Rate 113 mL/min (>60); Est Glom Filt Rate - Afr Amer 137 mL/min (>60); Globulin 2.5 g/dL (2.2-4.2); Glucose 93 mg/dL (74-106); High Density Lipoprotein 52 mg/dL; Potassium 4.1 mmol/L (3.5-5.1); Protein, Total 6.6 g/dL (6.4-8.2); Sodium Level 137 mmol/L (136-145); Thyroid Stim Hormone (TSH) 0.45 uIU/mL (0.358-3.74); Triglycerides 63 mg/dL; Very Low Density Lipoprotein 13 mg/dL (5-40)
[2023-12-05 12:59] LABS: Hemoglobin A1c 4.9 % (3.8-5.6)
== END | disposition home or self-care (01) ==
LOC: LAB 11:23
PROVIDERS: Referring Provider Nurse Practitioner Family; Visit Provider Nurse Practitioner Family
DX: F90.9 Attention-deficit hyperactivity disorder, unspecified type (principal); F33.1 Major depressive disorder, recurrent, moderate; F41.1 Generalized anxiety disorder; F41.0 Panic disorder [episodic paroxysmal anxiety]; G47.00 Insomnia, unspecified; M79.7 Fibromyalgia
CPT/HCPCS: 36415; 80053; 80061; 83036; 84443; 85025

== ENCOUNTER → 2024-05-19 | Outpatient (CLI) | payer OTHER, SELFPAY ==
[2024-05-19 09:52] LABS: Absolute Lymphocyte Count 3.02 X10^3/uL (0.83-4.51); Absolute Neutrophil Count 4.8 X10^3/uL (2.0-7.7); Basophil# 0.04 X10^3/uL; Basophil% 0.5 % (0-1); Eosinophil# 0.11 X10^3/uL; Eosinophils% 1.3 % (0-5); Hematocrit 46.1 % (37-47); Hemoglobin 15.3 g/dL (12.0-15.0); Lymphocyte # 3.02 X10^3/ul (0.83-4.51); Lymphocyte % 35.3 % (19-41); Mean Corp Hgb Conc 33.2 g/dL (32-36); Mean Corpuscular Hgb 28.5 pg (27.0-32.0); Mean Platelet Vol. 10.3 fl (6.2-12.0); Monocyte# 0.57 X10^3/uL; Monocyte% 6.7 % (0-10); NRBC Flagged by Analyzer 0 % (0-5); Platelet Count 269 K/mm3 (150-450); RBC Distribution Width CV 12.9 % (11.6-14.6); RBC Distribution Width SD 40.2 fl (35.1-43.9); Red Blood Count 5.36 M/mm3 (4.2-5.4); White Blood Count 8.6 K/mm3 (4.4-11.0)
[2024-05-19 10:18] LABS: Vitamin B12 534 pg/mL (211-911)
[2024-05-19 10:28] LABS: ALB/GLOB Ratio 1.5 RATIO (0.9-2.4); AST(SGOT) 14 U/L (15-37); Alanine Aminotransfer ALT/SGPT 14 U/L (13-56); Albumin, Serum 3.5 g/dL (3.2-5.0); Alkaline Phosphatase 53 U/L (45-117); Anion Gap 3 (5-15); BUN 7 mg/dL (7-18); BUN/Creat Ratio 9.8 RATIO (10-20); Calcium,Total 8.5 mg/dL (8.5-10.1); Chloride 109 mmol/L (98-107); Creatinine, Serum 0.72 mg/dL (0.55-1.02); EST Glomerular Filtration Rate 105 mL/min (>60); Est Glom Filt Rate - Afr Amer 128 mL/min (>60); Ferritin 6 ng/mL (8-252); Globulin 2.4 g/dL (2.2-4.2); Glucose 83 mg/dL (74-106); Iron 43 ug/dL (50-170); Iron Binding Capacity,Total 321 ug/dL (250-450); PERCENT IRON SATURATION 13.4 % (15.0-55.0); Potassium 3.9 mmol/L (3.5-5.1); Protein, Total 5.9 g/dL (6.4-8.2); Sodium Level 141 mmol/L (136-145)
[2024-05-21 00:07] LABS: Zinc, WHOLE BLOOD 581 ug/dL (440-860)
== END | disposition home or self-care (01) ==
PROVIDERS: PCP Nurse Practitioner Family; Referring Provider Nurse Practitioner Family; Visit Provider Nurse Practitioner Family
DX: R53.83 Other fatigue (principal)
CPT/HCPCS: 36415; 80053; 82306; 82607; 82728; 82746; 83540; 83550; 84630; 85025

== ENCOUNTER → 2024-10-19 | Outpatient (CLI) | payer OTHER, SELFPAY ==
[2024-10-19 15:43] LABS: Absolute Lymphocyte Count 2.19 X10^3/uL (0.83-4.51); Absolute Neutrophil Count 5.3 X10^3/uL (2.0-7.7); Basophil# 0.02 X10^3/uL; Basophil% 0.2 % (0-1); Eosinophil# 0.05 X10^3/uL; Eosinophils% 0.6 % (0-5); Hemoglobin 13.5 g/dL (12.0-15.0); Lymphocyte # 2.19 X10^3/ul (0.83-4.51); Lymphocyte % 26.9 % (19-41); Mean Corp Hgb Conc 34.6 g/dL (32-36); Mean Corpuscular Hgb 29.9 pg (27.0-32.0); Mean Corpuscular Volume 86.5 fL (81-99); Mean Platelet Vol. 10.1 fl (6.2-12.0); Monocyte# 0.56 X10^3/uL; Monocyte% 6.9 % (0-10); NRBC Flagged by Analyzer 0 % (0-5); Neutrophil # 5.29 X10^3/uL (2.7-7.7); Neutrophil % 65.2 % (47-70); Platelet Count 258 K/mm3 (150-450); RBC Distribution Width CV 12.7 % (11.6-14.6); RBC Distribution Width SD 40.2 fl (35.1-43.9); Red Blood Count 4.51 M/mm3 (4.2-5.4); White Blood Count 8.1 K/mm3 (4.4-11.0)
[2024-10-19 15:53] LABS: Erythrocyte Sedimentation Rate < 1 mm/hr (0-30)
[2024-10-19 16:05] LABS: PTHIN 44 pg/mL (11-61)
[2024-10-19 16:23] LABS: ALB/GLOB Ratio 2.2 RATIO (0.9-2.4); AST(SGOT) 23 U/L (<=31); Alanine Aminotransfer ALT/SGPT 12 U/L (<=34); Albumin, Serum 4.6 g/dL (3.5-5.0); Alkaline Phosphatase 57 U/L (35-104); Anion Gap 11 (5-15); BUN 8 mg/dL (4-19); BUN/Creat Ratio 11.5 RATIO (10-20); Calcium,Total 9.4 mg/dL (7.6-11.0); Carbon Dioxide 22.6 mmol/L (21.0-32.0); Chloride 106 mmol/L (98-108); Cholesterol 164 mg/dL (<=200); Creatinine, Serum 0.69 mg/dL (0.70-1.20); EST Glomerular Filtration Rate 123 (>60); Globulin 2.1 g/dL (2.2-4.2); Glucose 83 mg/dL (70-99); High Density Lipoprotein 40 mg/dL; Low Density Lipoprotein Calc. 101 mg/dL; Potassium 3.9 mmol/L (3.3-5.1); Protein, Total 6.7 g/dL (5.9-8.4); Sodium Level 139 mmol/L (133-145); Total Bilirubin 0.27 mg/dL (0.00-1.30); Triglycerides 114 mg/dL; Very Low Density Lipoprotein 23 mg/dL (5-40); cholesterol:hdl ratio screen 4.09
[2024-10-19 16:26] LABS: FOLATES,SERUM (FOLIC ACID) 9.45 ng/mL (4.60-34.80)
[2024-10-19 16:57] LABS: Hemoglobin A1c 5.2 % (<=5.6)
[2024-10-19 17:39] LABS: Ferritin 60 ng/mL (22-378); Iron Binding Capacity,Total 295 ug/dL (250-450); Thyroid Stim Hormone (TSH) 0.707 uIU/mL (0.300-4.200); Vitamin B12 1143 pg/mL (180-914); Vitamin D,25 Hydroxy 32.1 ng/mL (30-100)
[2024-10-19 17:40] LABS: Iron 52 ug/dL (50-170); Iron Binding Capacity,Unsat 243 ug/dL (228-428); PERCENT IRON SATURATION 17.6 % (13-59)
== END | disposition home or self-care (01) ==
LOC: LAB 13:11
PROVIDERS: PCP Nurse Practitioner Family; Referring Provider Nurse Practitioner Family; Visit Provider Nurse Practitioner Family
DX: F41.1 Generalized anxiety disorder (principal); F41.0 Panic disorder [episodic paroxysmal anxiety]; M79.7 Fibromyalgia; E61.1 Iron deficiency; E55.9 Vitamin D deficiency, unspecified
CPT/HCPCS: 36415; 80053; 80061; 82306; 82607; 82728; 82746; 83036; 83540; 83550; 83970; 84443; 85025; 85652